=== PATIENT | male | born 1965 | race Caucasian/White ===

== ENCOUNTER 2020-07-13 23:55 | Emergency (ER) | payer MEDICARE, SELFPAY ==
--- NOTE | 2020-07-13 23:45 | RT.EKG_ITS ---
APPROVED REPORT Exam: Resting ECG Patient Location: E HR:88 bpm ECG Measurements Heart Rate 88 AXIS MA 162 P 79 QRSd 99 QRS 53 QT 469 T 134 QTc 567 Conclusion Sinus rhythm...normal P axis, V-rate 60- 99 Probable left atrial enlargement...P >50mS, <-0.10mV V1 Abnrm T, probable ischemia, anterolateral lds...T <-0.50mV, I aVL V2-V6 Prolonged QT interval...QTc >500mS Physician:Rate 88, sinus rhythm, QTC is 567 however QT is 469, notably inverted T waves in V2, V3 V4 V5 and V6. No evidence of STEMI. No Q waves. No prior EKG for comparison.
[2020-07-13 23:59] VITALS: BP 105/73; PULSE 88; RESP 20; TEMP 36.8; O2SAT 94
[2020-07-14] VITALS (21 sets, daily range): BP systolic 105–124; BP diastolic 68–89; PULSE 78–94; RESP 4–27; O2SAT 91–99
--- NOTE | 2020-07-14 | RT.EKG_ITS ---
APPROVED REPORT Exam: Resting ECG Patient Location: E HR:84 bpm ECG Measurements Heart Rate 84 AXIS NE 173 P 71 QRSd 94 QRS 46 QT 483 T 131 QTc 571 Conclusion Sinus rhythm...normal P axis, V-rate 60- 99 Probable left atrial enlargement...P >50mS, <-0.10mV V1 Abnormal T, suspect prox. LAD occlu. or CVA...Symmetric T<-0.5mV, V2-V4 Prolonged QT interval...QTc >500mS Physician: Rate 84, sinus rhythm, enhancing T wave inversions in V2 through V6, slightly more pronoun chrystal than prior EKG 1 hour ago. No evidence of STEMI at this time.
--- NOTE | 2020-07-14 | DI.CT_ITS ---
EXAM: CT HEAD CERVICAL SPINE WO CLINICAL HISTORY: fall, old stroke. TECHNIQUE: Imaging Protocol: Axial computed tomography images with coronal and sagittal reformatted images were created and reviewed COMPARISON: No exams were available for comparison FINDINGS: CT Head: Ventricles and Extra axial spaces: There is generalized cerebral atrophy. Hemorrhage: None. Cerebral parenchyma: There are areas of decreased attenuation in the white matter consistent with thelma rovascular ischemic change. There are areas of encephalomalacia bilaterally. Old right basal gangli ar lacunar infarct is noted. No acute territorial infarct. Midline shift: None. Brainstem/Cerebellum: Normal. Calvarium: Normal. Visualized Paranasal sinuses/Mastoids: Clear. Soft Tissues: Unremarkable. CT Cervical Spine: Bones: No acute fracture or subluxation. Multilevel degenerative changes are seen throughout the cerv ical spine. Soft Tissues: Unremarkable. Lung Apices: Clear. IMPRESSION: 1. No acute intracranial process. 2. No acute fracture or subluxation in the cervical spine. RADIATION DOSE DELIVERED: 1,566.99mGy.cm Total DLP DATA REPOSITORY: All CT scans at this facility are submitted to the National Radiology Data Registry (NRDR) Dose Index Registry (DIR) with the [employer] (A[employer]). RADIATION OPTIMIZATION: All CT scans at this facility use at least one of these dose optimization te chniques: automated exposure control; mA and/or kV adjustment per patient size (includes targeted exa ms where dose is matched to clinical indication); or iterative reconstruction.
[2020-07-14] MEDS: Albuterol/Ipratropium 3 ML UPD VIAL 6 ML UPD (00:26)
[2020-07-14] MEDS: Normal Saline 500 ML IV (00:27)
--- NOTE | 2020-07-14 00:33 | ED.GENADUL_ITS ---
Discharge Plan Disposition Patient Disposition: [facility] Condition: Serious Discharge Details Clinical Impression: Non-ST elevation IA (NSTEMI), Acute hyponatremia, Alcohol intoxication, Fall Primary Care Provider: JHOANA PINTO ED Provider: Surjit Jones Home Meds and New Rx's Prescriptions: No Action tamsulosin [Flomax] 0.4 mg Capsule 4 mg PO DAILY RF: 0 Medical Decision Making Upon my evaluation, this patient had a high probability of imminent or life- threatening deterioration, which required my direct attention, intervention, and personal management. I have personally provided 45 minutes of critical care time exclusive of time spent on separately billable procedures. Time includes review of laboratory data, radiology results, discussion with consultants, and monitoring for potential decompensation. Interventions were performed as documented. 54-year-old male who is a notably poor historian presents for evaluation of intoxication chest pain. Per EMS he does have a history of a stroke in the past with chronic left-sided deficits. Patient states that I busted out of a halfway in [place] and had been living up here for a w hile. He is currently living with his ex-girlfriend and her significant other. Per those people they state that he has been drinking a notable amount of alcohol, and smoking a significant amount of tobacco, and then today he had fallen and had difficulty getting up. He complained of some chest pain and cough at that time, he was brought to the ER for further evaluation by EMS. He was given 1 nitroglycerin which notably improved his symptoms in addition to a 325 aspirin. He did soil himself. Patient right now appears intoxicated and states I feel fine. No other complaints at this time. No other modifying factors. No other known history. Exam demonstrates a somewhat undomiciled male, he is defecated and urinated on himself. He appears intoxicated but otherwise stable. He shows no signs of acute distress. Vital signs are stable. Differential is broad but includes rhabdo from his fall, potential cardiac etiology, COPD/asthma exacerbation. EKG shows notable inverted T waves in the anterior lateral leads, no evidence of STEMI. Slightly wellenoid in appearance. No prior EKG comparison. We will continue to monitor closely, gently rehydrate, get a CT scan of the head, chest x-ray, reassess. 1:19 AM Laboratory work-up has returned, no white count or bandemia. pH stable, sodium notably low at 125, chloride low at 89, minimal anion gap of 11.4. Of concern his troponin is 0.11, CPK normal. TSH normal. Alcohol level 300. Repeat EKG continues to show the notably inverted T waves, does appear to be potential slight enhancing of those now compared to the previous one. Obviously concerning for ACS. No evidence of STEMI at this point. We will heparinize the patient as soon as the CT scan is negative for bleed as he did fall and may have hit his head. We will consult [facility] for transfer. Patient remains hemodynamically stable. Repeat EKG shows continued lack of evidence of STEMI or is no indication for TPA at this point. 2:47 AM Patient remained stable, bedside echo was performed, no significant wall motion abnormalities that I can detect on the left ventricle at the apex, mild decrease in traumatic status to the right ventricle. This is a limited bedside echo though. Patient remained stable. He now tells me as he becomes more lucid that both of his parents of a heart attack at a young age, and earlier this evening while intoxicated he felt the chest pain and describes it as a vice-like sensation crushing on his chest. He said that the paramedics gave a medication that took it all the way. Patient remained stable at this time. I discussed the case with Dr. Arora of cardiology at [facility] and Dr. Bazan in the ED, patient will be transferred to the ED for further management. Cardiology recommends Plavix loading, we have given 600 of Plavix and 80 of statin. Patient is still being heparinized. I have extensively reviewed the treatment plan with the patient. I have addressed all patient concerns at this time. I have also discussed the plan with the admitting physician and they agree with the current assessment and plan and have agreed to assume responsibility for the patient. All parties demonstrate verbal understanding and agreement with our assessment and plan at this time. At time of transfer the patient was reassessed and continued to demonstrate No signs of acute respiratory distress requiring intubation, hemodynamic instability requiring pressor support, or rapidly declining mental status. The patient is stable for transport. Additionally the patient's urinalysis does show elevation in WBCs He denies any complaints dysuria. EKG 00: 06 Rate 88, sinus rhythm, QTC is 567 however QT is 469, notably inverted T waves in V2, V3 V4 V5 and V6. No evidence of STEMI. No Q waves. No prior EKG for comparison. EKG 01: 10 Rate 84, sinus rhythm, enhancing T wave inversions in V2 through V6, slightly more pronounced than prior EKG 1 hour ago. No evidence of STEMI at this time. FINDINGS: Lungs: Unremarkable. No consolidation. Pleural space: Unremarkable. No pleural effusion. No pneumothorax. Heart/Mediastinum: Unremarkable. No cardiomegaly. Bones/joints: Unremarkable. IMPRESSION: No acute findings. Thank you for allowing us to participate in the care of your patient. Dictated and Authenticated by: Gurdeep Sharpe MD 07/14/2020 1:08 AM Eastern Time ([place] & [place]) FINDINGS: Brain: Bilateral focal areas of encephalomalacia. Chronic lacunar infarct right basal ganglia. No acute territorial infarct. No acute intracranial hemorrhage. Cerebral ventricles: No ventriculomegaly. Bones/joints: Unremarkable. No acute fracture. Paranasal sinuses: Visualized sinuses are unremarkable. No fluid levels. Mastoid air cells: Visualized mastoid air cells are well aerated. Soft tissues: Unremarkable. IMPRESSION: No acute finding. FINDINGS: Vertebrae: No acute fracture. Normal alignment. Multilevel degenerative disk disease and facet arthropathy with at least mild neuroforaminal and canal stenosis.. Soft tissues: Unremarkable. Lungs: Lung apices are normal. IMPRESSION: No acute findings. Thank you for allowing us to participate in the care of your patient. Dictated and Authenticated by: Gurdeep Sharpe MD 07/14/2020 1:51 AM Eastern Time ([place] & [place]) HPI General Date/Time Provider Initiated Documentation: 07/14/20 00:04 . HPI Narrative: 54-year-old male who is a notably poor historian presents for evaluation of intoxication chest pain. Per EMS he does have a history of a stroke in the past with chronic left-sided deficits. Patient states that I busted out of a halfway in [place] and had been living up here for a while. He is currently living with his ex-girlfriend and her significant other. Per those people they state that he has been drinking a notable amount of alcohol, and smoking a significant amount of tobacco, and then today he had fallen and had difficulty getting up. He complained of some chest pain and cough at that time, he was brought to the ER for further evaluation by EMS. He was given 1 nitroglycerin which notably improved his symptoms in addition to a 325 aspirin. He did soil himself. Patient right now appears intoxicated and states I feel fine. No other complaints at this time. No other modifying factors. No other known history. Related Data Home Medications Medication Instructions Recorded Confirmed tamsulosin [Flomax] 4 mg PO DAILY 07/14/20 07/14/20 Allergies Allergy/AdvReac Type Severity Reaction Status Date / Time No Known Allergies Allergy Unverified 07/14/20 00:10 General Stated Complaint: Chest Pain TABATHA: 2 Review of Systems All systems reviewed & are unremarkable except as noted in HPI and below PFSH Social History Smoking risk assessment performed?: No Alcohol Intake: current Alcohol Intake frequency: 0-2 drinks per day Alcohol type: beer and hard liquor Substance use type: does not use Do you feel safe at home: Yes Exam Narrative Exam Narrative: 1.Const: Well-nourished, Well-developed, appearing stated age, self soiled, notably disheveled 2.Eyes: PERRL, no conjunctival injection, and symmetrical lids. 3.ENT: Atraumatic external nose and ears. Moist MM. Neck: Symmetric, trachea midline, No thyromegaly. 4.CVS: +S1/S2, No murmurs or gallops. Peripheral pulses 2+ and equal in all extremities. Brisk capillary refill in all extremities. 5.RESP: Unlabored respiratory effort. Crackles in the bases, mild wheezes. 6.GI: Soft, Nontender/Nondistended, No hepatosplenomegaly. No guarding or rebound. 7.MSK: Normocephalic/Atraumatic, Extremities w/o deformity or ttp No cyanosis or clubbing, Normal movement of all extremities except for slight weakness in the upper and lower left extremities. 8.Skin: Warm, Dry. No rashes or lesions. 9.Neuro: roll cutter II-XII grossly intact. Sensation grossly intact, movement is present for all extremities, slightly weak in the left compared to the right which she states is chronic. No other focal neurologic deficits. 10.Psych: (AAO) x1, intoxicated Course Vital Signs Vital signs: Vital Signs Temperature 36.8 C 07/13/20 23:59 Pulse 88 07/13/20 23:59 Respiratory Rate 20 07/13/20 23:59 Blood Pressure 105/73 07/13/20 23:59 Pulse Oximetry 94 07/13/20 23:59 Temperature 36.8 C 07/13/20 23:59 Temperature Source Skin 07/13/20 23:59 Pulse 91 H 07/14/20 00:26 Respiratory Rate 23 07/14/20 00:26 Respiratory Effort Non-Labored 07/14/20 00:12 Respiratory Depth Normal 07/14/20 00:12 Respiratory Pattern Normal 07/14/20 00:12 Blood Pressure 105/73 07/13/20 23:59 Blood Pressure Position Supine 07/13/20 23:59 Pulse Oximetry 93 07/14/20 00:26 Oxygen Delivery Method Room Air 07/14/20 00:26 Oxygen Flow Rate 0 07/14/20 00:26 Pain Level 1 07/14/20 00:12
[2020-07-14 00:34] LABS: BE (Venous) 1 mmol/L (-2-3); HCO3 (Venous) 26 mmol/L (23-28); O2 Sat (Venous) 75 %; TCO2 (Venous) 23 mmol/L (24-29); pCO2 (Venous) 46 mmHg (41-51); pH (Venous) 7.36 (7.31-7.41); pO2 (Venous) 43 mmHg
[2020-07-14 00:38] LABS: Abs Immature Grans 0.03 10^3/uL (0.0-0.06); Absolute Basophil Count 0.03 10^3/uL (0.0-0.2); Absolute Eosinophil Count 0.13 10^3/uL (0.0-0.7); Absolute Lymphocyte Count 3.03 10^3/uL (1.2-3.4); Absolute Monocyte Count 0.37 10^3/uL (0.1-0.8); Absolute Neutrophil Count 3.02 10^3/uL (1.2-6.7); Basophils % 0.5; HGB 17.4 g/dL (13.5-17.5); Immature Grans % 0.5; Lymphocytes % 45.8; MCH 30.4 pg (27.0-33.0); MCHC 34.8 % (32.0-36.0); MCV 87.4 fL (80-95); Monocytes % 5.6; Neutrophils % 45.6; Nucleated RBC 0 %; Platelet Count 120 10^3/uL (130-400); RBC 5.72 10^6/uL (4.36-5.78); RDW 14.1 % (11.8-14.1); RDW-SD 45.5 fL; WBC 6.61 10^3/uL (4.4-10.8)
--- NOTE | 2020-07-14 01:01 | DI.RAD_ITS ---
EXAM: XR PORTABLE CHEST AP CLINICAL HISTORY: cough, chest pain, SOB TECHNIQUE: 2D digital imaging was performed. COMPARISON: No exams were available for comparison FINDINGS: MEDIASTINUM: Normal. HEART: Normal. PULMONARY VASCULATURE: Normal. LUNGS: Clear. PLEURAL SPACE: No pleural effusion or pneumothorax. BONE:Within normal limits for the patient's age. Old healed left rib fractures. OTHER FINDINGS:Normal. IMPRESSION: No acute pulmonary findings. DATA REPOSITORY: RADIATION DOSE DELIVERED:
[2020-07-14 01:06] LABS: ALT 75 U/L (16-63); AST 96 U/L (15-37); Albumin 3.4 g/dL (3.4-5.0); Alkaline Phosphatase 109 U/L (46-116); Anion Gap 11.4 mmol/L (3-11); BUN 5 mg/dL (7-18); Bilirubin, Total 0.7 mg/dL (0.2-1.0); CO2 24.6 mmol/L (21.0-32.0); CREATININE 0.83 mg/dL (0.70-1.30); Calcium 8.1 mg/dL (8.5-10.1); Chloride 89 mmol/L (98-107); Creatine Kinase 92 U/L (39-308); Glucose 102 mg/dL (74-106); Potassium 3.9 mmol/L (3.5-5.1); Sodium 125 mmol/L (136-145); Total Protein 7.2 g/dL (6.4-8.2)
[2020-07-14 01:07] LABS: ETHANOL BLOOD > 300.0 mg/dL (<3)
[2020-07-14 01:08] LABS: Troponin I 0.11 ng/mL (<0.06)
--- NOTE | 2020-07-14 01:08 | DI.VRAD_ITS ---
PROCEDURE INFORMATION: Exam: XR Chest, 1 View Exam date and time: 07/14/2020 12:40 AM Age: 54 years old Clinical indication: Shortness of breath; Patient HX: Cough, SOB, chest pain, HX stroke x2 TECHNIQUE: Imaging protocol: XR of the chest Views: 1 view. COMPARISON: No relevant prior studies available. FINDINGS: Lungs: Unremarkable. No consolidation. Pleural space: Unremarkable. No pleural effusion. No pneumothorax. Heart/Mediastinum: Unremarkable. No cardiomegaly. Bones/joints: Unremarkable. IMPRESSION: No acute findings. Dictated and Authenticated by: Gurdeep Sharpe MD. Ordering:MARIZA Eddy MD
[2020-07-14 01:14] LABS: PTT Activated 25.9 sec (21.0-27.5); Prothrombin Time 10.2 sec (9.3-11.0)
--- NOTE | 2020-07-14 01:50 | NUR.NOTE ---
Nursing Note: Patient refuses to wear C-collar after provider recommendation. Patient made aware of risks associated with refusal to wear C-collar. Patient refuses second IV placement. Patient taking nasal cannula off reporting I don't need it, I'm breathing just fine. Oxygen maintaining between 90-94% at this time on room air. Provider made aware.
--- NOTE | 2020-07-14 01:51 | DI.VRAD_ITS ---
PROCEDURE INFORMATION: Exam: CT Head Without Contrast Exam date and time: 07/14/2020 1:27 AM Age: 54 years old Clinical indication: Injury or trauma; Blunt trauma (contusions or hematomas); Consciousness not specified; Injury date: 07/13/20; Injury details: Fall, HX stroke TECHNIQUE: Imaging protocol: Computed tomography of the head without contrast. Radiation optimization: All CT scans at this facility use at least one of these dose optimization techniques: automated exposure control; mA and/or kV adjustment per patient size (includes targeted exams where dose is matched to clinical indication); or iterative reconstruction. COMPARISON: No relevant prior studies available. FINDINGS: Brain: Bilateral focal areas of encephalomalacia. Chronic lacunar infarct right basal ganglia. No acute territorial infarct. No acute intracranial hemorrhage. Cerebral ventricles: No ventriculomegaly. Bones/joints: Unremarkable. No acute fracture. Paranasal sinuses: Visualized sinuses are unremarkable. No fluid levels. Mastoid air cells: Visualized mastoid air cells are well aerated. Soft tissues: Unremarkable. IMPRESSION: No acute finding. PROCEDURE INFORMATION: Exam: CT Cervical Spine Without Contrast Exam date and time: 07/14/2020 1:27 AM Age: 54 years old Clinical indication: Injury or trauma; Blunt trauma (contusions or hematomas); Consciousness not specified; Injury date: 07/13/20; Injury details: Fall, HX stroke TECHNIQUE: Imaging protocol: Computed tomography images of the cervical spine without contrast. Radiation optimization: All CT scans at this facility use at least one of these dose optimization techniques: automated exposure control; mA and/or kV adjustment per patient size (includes targeted exams where dose is matched to clinical indication); or iterative reconstruction. COMPARISON: No relevant prior studies available. FINDINGS: Vertebrae: No acute fracture. Normal alignment. Multilevel degenerative disk disease and facet arthropathy with at least mild neuroforaminal and canal stenosis.. Soft tissues: Unremarkable. Lungs: Lung apices are normal. IMPRESSION: No acute findings. Dictated and Authenticated by: Gurdeep Sharpe MD. Ordering:MARIZA Eddy MD
[2020-07-14 02:33] LABS: Bilirubin Negative (Negative); Blood Trace-intact (Negative); Clarity Sl Cloudy (Clear); Glucose Negative (Negative); Ketones Negative (Negative); Leukocyte Esterase Moderate (Negative); Nitrite Negative (Negative); Urobilinogen 0.2 EU/dL (Up TO 0.2); pH 5.5 (5-8)
[2020-07-14 02:34] LABS: Bacteria Many HPF (Negative); C & S Indicated? Yes; Casts Negative LPF (Negative); Crystals Negative HPF (Negative); Epithelial Cells Few HPF (Negative); Mucus Trace (Negative); Other Cells Negative (Negative); RBC 0-2 HPF (0-2); WBC 20-50 HPF (0-5)
[2020-07-14] MEDS: Clopidogrel 300 MG TAB PO (02:48)
[2020-07-14] MEDS: Atorvastatin 40 MG TAB 80 MG PO (02:48)
--- NOTE | 2020-07-15 07:52 | NUR.NOTE ---
Nursing Note: Accessed [facility] patient record with Dr. Surjit Jones DO present. Josie Lamas
== END 2020-07-14 03:04 | disposition short-term general hospital (02) ==
PROVIDERS: Emergency Provider Student in an Organized Health Care Education/Training Program; PCP Nurse Practitioner Family
DX: I21.4 Non-ST elevation (NSTEMI) myocardial infarction (principal); E87.1 Hypo-osmolality and hyponatremia; F10.120 Alcohol abuse with intoxication, uncomplicated; Y90.8 Blood alcohol level of 240 mg/100 ml or more; W19.XXXA Unspecified fall, initial encounter; Z82.41 Family history of sudden cardiac death
CPT/HCPCS: 36415; 80053; 82550; 82805; 87077; 93005; 94640; 96361; 96365; 99291; 70450; 71045; 72125; 80320; 81003; 81015; 84443; 84484; 85025; 85610; 85730; 87086; 87186; 93010; J7620

== ENCOUNTER 2020-09-04 17:23 | Inpatient (IN) | payer MEDICARE, MEDICAID, SELFPAY ==
[2020-09-04] VITALS (62 sets, daily range): BP systolic 122–180; BP diastolic 67–107; PULSE 103–118; RESP 16–23; TEMP 36.3–36.4; O2SAT 94–100
--- NOTE | 2020-09-04 17:41 | ED.GENADUL_ITS ---
Discharge Plan Disposition Patient Disposition: [facility] INPATIENT Condition: Serious Discharge Details Chief Complaint: Male Reproductive Problem Clinical Impression: Epididymo-orchitis Primary Care Provider: JHOANA PINTO ED Provider: Kumar Jacob Home Meds and New Rx's Prescriptions: No Action metformin 500 mg Tablet 500 mg PO DAILY RF: 0 tamsulosin [Flomax] 0.4 mg Capsule 4 mg PO DAILY RF: 0 Medical Decision Making 54-year-old gentleman presents via EMS complaining of left testicle pain for a week, severe over the past 2 days, also notes left lower quadrant discomfort in his abdomen. He states nothing makes the pain worse or better. He makes it very clear that he would prefer to be admitted to our facility or go to a [facility], no longer feels like he can take care of himself at home safely. Clinically he appears disheveled, is hypertensive, tachycardic, has left lower quadrant discomfort and a very firm painful left testicle. Differential is wide but does include diverticulitis, renal stone, hernia, orchiditis, epididymitis, torsion, UTI, etc. Will obtain IV access, give IV fluid, Tylenol, obtain CBC, CMP, lipase, urinalysis, lactate, GC and chlamydia. I will carefully monitor his laboratory values and vital signs after medication is administered. Given his symptoms have been present for 1 week, likely emergent ultrasound not indicated; however, I will reach out to radiology to see if the lead technologist in cytogenetics is available. Upon reevaluation no change in heart rate or hypertension. Pain now a 7 out of 10 down from a 10 out of 10. Laboratory values reveal a white blood cell count of 9.94 hemoglobin 17.0 hematocrit 50.2 platelet count 138. Lactate 1.1 sodium 132 potassium 3.4 chloride 91, creatinine 0.8 with a GFR greater than 60. Total bili 1.1 AST 29, ALT 36, alk phosphatase 125, albumin 3.2 lipase 92. Patient was able to give the dirty urine for GC chlamydia but unable to give a urinalysis. Alcohol less than 3. We will obtain CT imaging of his abdomen and pelvis with contrast. In the meantime I did reach out to care management as if I cannot find a clear medical reason to admit the patient, he does not feel safe going home. I was able to speak with Tiana and she felt as though overnight a swing bed would be appropriate and able to reassess situation tomorrow. Patient reports no significant change in his pain, given 2 mg IV morphine and a second liter of IV fluids. Upon reassessment patient reports no change in his pain. CT imaging of abdomen and pelvis with IV contrast read by radiology as abnormal appearing bladder which may be the result of chronic outlet obstruction, cystitis, or bladder malignancy. Low-density hepatic lesions with differential including metastatic disease. I reviewed the CT myself, requested that an addendum be made regarding the scrotum specifically. records management technician not available to come in tonight. Urinalysis reveals 80 ketones moderate blood positive nitrate, small leuk esterase, greater than 50 white cells. Patient remains with persistent tachycardia and hypertension. He denies alcohol withdrawal in the past. Reports that he only drinks once every 2 or 3 days, believes that his vital signs are abnormal secondary to pain and has nothing to do with any potential alcohol withdrawal. At this time we will give 2 mg IV A tivan and 60 IM Toradol. Addendum of CT is read as there is a simple appearing hydrocele within the right hemiscrotum. There is a structure within the left hemiscrotum which is bulging the median raphe to the right and probably represents a heterogeneous left testicle, although may in part represent septated hydrocele. Consider scrotal ultrasound for further evaluation. Upon reevaluation heart rate is now 104 and blood pressure is 124/81. Given his urinalysis, discomfort, CT findings, will obtain blood cultures and treat with IV Levaquin for potential UTI,orchitis, epididymitis. I will discuss the case with our hospitalist team for admission. Case discussed with Dr. Donahue who is agreeable to admission and will evaluate the patient personally in the ER. Medical Records Medical records reviewed: Yes I reviewed the patient's medical records. Lab Data Lab results reviewed: Yes I reviewed the patient's lab results. Lab results narrative: 09/04/20 21:32 Blood Blood Culture - Pending 09/04/20 21:32 Blood Blood Culture - Pending 09/04/20 20:58 Urine - Reflex from Ua Urine Culture - Pending Laboratory Tests Range/Units 09/04/20 09/04/20 09/04/20 18:15 18:15 18:15 WBC (4.4-10.8) 10^3/uL 9.94 RBC (4.36-5.78) 10^6/uL 5.46 Hgb (13.5-17.5) g/dL 17.0 Hct (40.0-50.0) % 50.2 H MCV (80-95) fL 91.9 MCH (27.0-33.0) pg 31.1 MCHC (32.0-36.0) % 33.9 RDW (11.8-14.1) % 15.6 H Plt Count (130-400) 10^3/uL 138 MPV (8.0-11.0) fL 9.3 Immature Gran % 0.5 Neutrophils % 79.9 Lymphocytes % 14.8 Monocytes % 4.3 Eosinophils % 0.2 Basophils % 0.3 Nucleated RBC % % 0 Absolute Neutrophils (1.2-6.7) 10^3/uL 7.94 H Absolute Lymphocytes (1.2-3.4) 10^3/uL 1.47 Absolute Monocytes (0.1-0.8) 10^3/uL 0.43 Absolute Eosinophils (0.0-0.7) 10^3/uL 0.02 Absolute Basophils (0.0-0.2) 10^3/uL 0.03 VBG Lactate (0.6-1.4) mmol/L Sodium (136-145) mmol/L 132 L Potassium (3.5-5.1) mmol/L 3.4 L Chloride (98-107) mmol/L 91 L Carbon Dioxide (21.0-32.0) mmol/L 22.4 Anion Gap (3-11) mmol/L 18.6 H BUN (7-18) mg/dL 7 Creatinine (0.70-1.30) mg/dL 0.8 Estimated GFR/1.73 m2 (mL/min/1.73m2) >= 60.00 Glucose (74-106) mg/dL 146 H Calcium (8.5-10.1) mg/dL 9.1 Total Bilirubin (0.2-1.0) mg/dL 1.1 H AST (15-37) U/L 29 ALT (16-63) U/L 36 Alkaline Phosphatase (46-116) U/L 125 H Total Protein (6.4-8.2) g/dL 8.4 H Albumin (3.4-5.0) g/dL 3.2 L Lipase (73-393) U/L 92 Urine Color (Yellow) Urine Clarity (Clear) Urine pH (5-8) Ur Specific [place] (1.005-1.025) Urine Protein (Negative) mg/dL Urine Ketones (Negative) mg/dL Urine Blood (Negative) Urine Nitrite (Negative) Urine Bilirubin (Negative) Urine Urobilinogen (Up TO 0.2) EU/dL Ur Leukocyte Esterase (Negative) Urine RBC (0-2) HPF Urine WBC (0-5) HPF Ur Epithelial Cells Urine Crystals Urine Bacteria Urine Mucus Ur Culture Indicated? Urine Glucose (Negative) mg/dL Ethyl Alcohol (<3) mg/dL < 3.0 Range/Units 09/04/20 09/04/20 18:27 20:58 WBC (4.4-10.8) 10^3/uL RBC (4.36-5.78) 10^6/uL Hgb (13.5-17.5) g/dL Hct (40.0-50.0) % MCV (80-95) fL MCH (27.0-33.0) pg MCHC (32.0-36.0) % RDW (11.8-14.1) % Plt Count (130-400) 10^3/uL MPV (8.0-11.0) fL Immature Gran % Neutrophils % Lymphocytes % Monocytes % Eosinophils % Basophils % Nucleated RBC % % Absolute Neutrophils (1.2-6.7) 10^3/uL Absolute Lymphocytes (1.2-3.4) 10^3/uL Absolute Monocytes (0.1-0.8) 10^3/uL Absolute Eosinophils (0.0-0.7) 10^3/uL Absolute Basophils (0.0-0.2) 10^3/uL VBG Lactate (0.6-1.4) mmol/L 1.1 Sodium (136-145) mmol/L Potassium (3.5-5.1) mmol/L Chloride (98-107) mmol/L Carbon Dioxide (21.0-32.0) mmol/L Anion Gap (3-11) mmol/L BUN (7-18) mg/dL Creatinine (0.70-1.30) mg/dL Estimated GFR/1.73 m2 (mL/min/1.73m2) Glucose (74-106) mg/dL Calcium (8.5-10.1) mg/dL Total Bilirubin (0.2-1.0) mg/dL AST (15-37) U/L ALT (16-63) U/L Alkaline Phosphatase (46-116) U/L Total Protein (6.4-8.2) g/dL Albumin (3.4-5.0) g/dL Lipase (73-393) U/L Urine Color (Yellow) Yellow Urine Clarity (Clear) Sl cloudy Urine pH (5-8) 6.0 Ur Specific [place] (1.005-1.025) 1.015 Urine Protein (Negative) mg/dL 30 H Urine Ketones (Negative) mg/dL 80 H Urine Blood (Negative) Moderate H Urine Nitrite (Negative) Positive H Urine Bilirubin (Negative) Negative Urine Urobilinogen (Up TO 0.2) EU/dL 1.0 H Ur Leukocyte Esterase (Negative) Small H Urine RBC (0-2) HPF Urine WBC (0-5) HPF >50 H Ur Epithelial Cells Not Applicable Urine Crystals Not Applicable Urine Bacteria Not Applicable Urine Mucus Not Applicable Ur Culture Indicated? Yes Urine Glucose (Negative) mg/dL Negative Ethyl Alcohol (<3) mg/dL HPI General Mode of arrival: EMS . Date/Time Provider Initiated Documentation: 09/04/20 17:25 . Limitations to Documentation: no limitations . Information obtained by: patient and EMS . HPI Narrative: This is a 54-year-old gentleman, history of diabetes, BPH, presented to the ER via EMS. He moved here in April from [place]. He states that he lives at home alone and has limited resources locally. He is complaining of left sided testicle pain for th past week that has worsened progressively but now severe over the past 2 days. He states that his entire scrotum is red and swollen. He also reports left lower quadrant pain for the past few days. He is a rather vague and poor historian. He denies recent illness or trauma. Denies fever, chest pain, back pain, nausea, vomiting, difficulty with bowel or bladder problems. Denies dysuria, hematuria, flank pain, diarrhea or constipation. He has not taken any [id number] medication for his symptoms. He reports the pain is always there, nothing makes it better or worse. He is not sexually active. Has never had any symptoms like this before. Per EMS, patient with CVA x2. Patient admits to drinking alcohol whenever I can, and smoking daily. Related Data Home Medications Medication Instructions Recorded Confirmed tamsulosin [Flomax] 4 mg PO DAILY 07/14/20 09/04/20 metformin 500 mg PO DAILY 09/04/20 09/04/20 Allergies Allergy/AdvReac Type Severity Reaction Status Date / Time No Known Allergies Allergy Unverified 07/14/20 00:10 General Stated Complaint: Male Reproductive Problem TABATHA: 2 Review of Systems Constitutional Constitutional: Denies fatigue, Denies fever(s), Denies headache(s) and Denies weakness ENT Ears, Nose, Mouth, and Throat: Denies headache(s) and Denies neck pain Cardiovascular Cardiovascular: Denies chest pain and Denies dyspnea Respiratory Respiratory: Denies cough and Denies dyspnea Gastrointestinal Gastrointestinal: Reports abdominal pain, Denies constipation, Denies diarrhea, Denies nausea and Denies vomiting Genitourinary Genitourinary: Denies hematuria, Denies difficulty urinating, Denies genital lesions, Denies genital pain, Denies dysuria, Denies flank pain, Denies penile discharge, Reports scrotal swelling, Denies testicular mass, Reports testicular pain and Denies urinary frequency Musculoskeletal Musculoskeletal: Denies back pain, Denies neck pain and Denies tingling Integumentary/Breasts Skin/Breast: Reports other (Skin breakdown in the groin) Neurologic Neurologic: Denies headache(s), Denies tingling and Denies weakness Endocrine Endocrine: Denies fatigue Hematologic/Lymphatic Hematologic/Lymphatic: Denies easy bleeding and Denies easy bruising [facility] Social History Smoking risk assessment performed?: No Alcohol Intake: current Alcohol Intake frequency: 3 or more drinks per day Alcohol type: beer and hard liquor Drug use: Occasionally Substance use type: marijuana Do you feel safe at home: Yes Exam Const General: cooperative, disheveled and other (Appears uncomfortable) Orientation: alert, awake and oriented x3 HENMT Head: normal to inspection, normocephalic and atraumatic Face and sinus: normal facial exam Mouth: moist mucous membranes abnormal (Dry) Eyes Conjunctivae: conjunctivae normal Sclera: sclerae normal Neck Neck: normal visual inspection, full ROM, trachea midline and supple Resp Effort & Inspection: normal respiratory effort and able to speak in complete sentences Auscultation: clear to auscultation bilaterally Cardio Rate: tachycardic (112) Rhythm: regular rhythm GI Inspection: normal to inspection Palpation: soft, not firm, no guarding, no pulsatile masses and tender in the LLQ Auscultation: normal bowel sounds Male General Exam: Yes other (Erythema) Penis: normal penis Meatus: meatus normal Scrotum: erythematous bilaterally, scrotal swelling bilaterally (Minimal) and other (Tenderness makes examination extremely difficult) Testes: testicular swelling on the left, testicular tenderness on the left (Exquisitely tender and diffusely firm) and high-riding testicle on the left Back/Spine/Pelvis Back: No back tenderness Skin Other: Excoriated erythematous tissue bilateral groin Neuro General: patient alert, patient awake, moves all extremities and no focal motor deficits Cognition: normal cognition Speech: speech normal Sensory Exam: no sensory deficits noted Extrem General: normal to inspection, full ROM and capillary refill normal Psych Appearance: grossly normal Mental Status: mental status grossly normal Course Vital Signs Vital signs: Vital Signs Temperature 36.3 C L 09/04/20 17:32 Pulse 115 H 09/04/20 17:32 Respiratory Rate 18 09/04/20 17:32 Blood Pressure 174/107 H 09/04/20 17:32 Pulse Oximetry 94 09/04/20 17:32 Temperature 36.3 C L 09/04/20 17:32 Temperature Source Skin 09/04/20 17:32 Pulse 115 H 09/04/20 17:32 Respiratory Rate 18 09/04/20 17:32 Respiratory Effort Non-Labored 09/04/20 17:39 Blood Pressure 174/107 H 09/04/20 17:32 Blood Pressure Position Supine 09/04/20 17:32 Pulse Oximetry 94 09/04/20 17:32 Oxygen Delivery Method Room Air 09/04/20 17:32 Oxygen Flow Rate 0 09/04/20 17:32 Pain Level 8 09/04/20 17:32
[2020-09-04 18:26] LABS: Abs Immature Grans 0.05 10^3/uL (0.0-0.06); Absolute Basophil Count 0.03 10^3/uL (0.0-0.2); Absolute Eosinophil Count 0.02 10^3/uL (0.0-0.7); Absolute Lymphocyte Count 1.47 10^3/uL (1.2-3.4); Absolute Monocyte Count 0.43 10^3/uL (0.1-0.8); Absolute Neutrophil Count 7.94 10^3/uL (1.2-6.7); Basophils % 0.3; Eosinophils % 0.2; HCT 50.2 % (40.0-50.0); Immature Grans % 0.5; Lymphocytes % 14.8; MCH 31.1 pg (27.0-33.0); MCHC 33.9 % (32.0-36.0); MCV 91.9 fL (80-95); MPV 9.3 fL (8.0-11.0); Monocytes % 4.3; Neutrophils % 79.9; Nucleated RBC 0 %; Platelet Count 138 10^3/uL (130-400); RBC 5.46 10^6/uL (4.36-5.78); RDW 15.6 % (11.8-14.1); RDW-SD 52.6 fL; WBC 9.94 10^3/uL (4.4-10.8)
--- NOTE | 2020-09-04 18:30 | DI.CT_ITS ---
EXAM: CT ABDOMEN PELVIS W CLINICAL HISTORY: LLQ pain, L testicle pain and swelling. TECHNIQUE: Imaging Protocol: Axial computed tomography images with coronal and sagittal reformatted images were created and reviewed CONTRAST MATERIAL: Intravenous: Omnipaque 100cc Oral: None COMPARISON: No exams were available for comparison FINDINGS: VISUALIZED LUNG BASES: No nodules nor pleural effusions evident. ABDOMEN: There is no ascites. LIVER: Liver contour is somewhat cirrhotic in appearance. There are multiple focal findings in the l iver. There is a subcapsular lesion measuring 2.2 x 1.9 cm in the left hepatic lobe which is denser than a typical cyst. Another lesion measuring 2.4 x 2.0 cm is seen in the medial aspect of the right hepatic lobe. This is also too dense to be a simple cyst. More inferiorly in the right hepatic lob e there are other subcapsular lesion measuring 2.2 x 1.9 cm. Caudate lobe is slightly prominent. GALLBLADDER/BILIARY: The gallbladder surgically absent. Intrahepatic ducts are not dilated. CBD laura meter is slightly prominent, most probably related to post cholecystectomy status. There are no calc rogerio in the lower CBD. No pancreatic head mass evident. PANCREAS: No pancreatic mass evident. Pancreatic duct diameter is upper normal. SPLEEN: Spleen is not enlarged. No obvious intrasplenic lesions. Splenic and portal veins are paten t. ADRENALS: There is a 4 millimeter nodule in the lateral limb of the left adrenal gland,. Opposite-ri ght adrenal gland is unremarkable. KIDNEYS:No cysts evident. No solid renal masses. No calculi nor hydronephrosis.. ABDOMINAL AORTA: The abdominal aorta is calcified and atherosclerotic. There is mild fusiform dilata tion of the infrarenal abdominal aorta. Maximum external diameter is only 2.2 cm. Common iliac mal ayana are heavily calcified but not enlarged. ABDOMINAL WALL/GI: No evidence of significant anterior abdominal wall hernia. The colon is collapsed appears slightly edematous although this may be related to lack of oral contrast. No evidence of di verticulitis. PELVIS: GI: No evidence of appendicitis.No evidence of sigmoid diverticulitis. LYMPH NODES: There is no intrapelvic nor inguinal adenopathy. REPRODUCTIVE: Prostate size is upper normal. URINARY BLADDER: The urinary bladder wall is diffusely thickened and trabeculated. There few diverti culi evident. Largest of these is lateral left and measures 1.5 x 1.2 cm. OSSEOUS: No significant osseous lesions. Left hip hardware noted. Chronic degenerative disc disease L5-S1 level. IMPRESSION: 1. Very abnormal appearance of the urinary bladder diffuse bladder wall thickening and diverticuli. Probably related to chronic cystitis and/or an element of bladder outlet obstruction despite absence of bladder distension. Also diverticuli. There is no hydronephrosis. Urology consultation recommen ded. 2. Multiple lesions in the liver which are not simple cysts. Recommend contrast infused MRI with hem angioma protocol to differentiate these as hemangiomas versus neoplastic lesions. 3. Small 4 millimeter nodule in the left adrenal gland, probably an incidental adenoma. 4. Left hip hardware from ORIF. RADIATION DOSE DELIVERED: 1,349.62mGy.cm Total DLP DATA REPOSITORY: All CT scans at this facility are submitted to the National Radiology Data Registry (NRDR) Dose Index Registry (DIR) with the [employer] (ACR). RADIATION OPTIMIZATION: All CT scans at this facility use at least one of these dose optimization te chniques: automated exposure control; mA and/or kV adjustment per patient size (includes targeted exa ms where dose is matched to clinical indication); or iterative reconstruction.
--- NOTE | 2020-09-04 18:38 | NUR.NOTE ---
Referral to Care Management to establish pcp [facility].Nursing Note:
[2020-09-04 18:39] LABS: Lactate 1.1 mmol/L (0.6-1.4)
[2020-09-04 18:39] LABS: ALT 36 U/L (16-63); AST 29 U/L (15-37); Albumin 3.2 g/dL (3.4-5.0); Alkaline Phosphatase 125 U/L (46-116); Anion Gap 18.6 mmol/L (3-11); BUN 7 mg/dL (7-18); Bilirubin, Total 1.1 mg/dL (0.2-1.0); CO2 22.4 mmol/L (21.0-32.0); CREATININE 0.8 mg/dL (0.70-1.30); Calcium 9.1 mg/dL (8.5-10.1); Chloride 91 mmol/L (98-107); Glucose 146 mg/dL (74-106); Lipase 92 U/L (73-393); Potassium 3.4 mmol/L (3.5-5.1); Sodium 132 mmol/L (136-145); Total Protein 8.4 g/dL (6.4-8.2)
[2020-09-04] MEDS: Normal Saline 1,000 ML 1000 ML IV (18:43)
[2020-09-04] MEDS: ACETAMINOPHEN 1,000 MG/100 ML BTL 400 MG IVPB (18:46)
[2020-09-04 18:48] LABS: ETHANOL BLOOD < 3.0 mg/dL (<3)
[2020-09-04] MEDS: Omnipaque 350 MG/ML 100 ML BTL IJ (19:18)
[2020-09-04] MEDS: Normal Saline - Diluent 50 ML VIAL IV (19:22)
[2020-09-04] MEDS: Normal Saline Flush 10 ML SYR IVP (19:26)
--- NOTE | 2020-09-04 19:56 | DI.VRAD_ITS ---
Addendum created by Juarez Harrell MD on 09/04/2020 8:28:01 PM EST: There is a simple appearing hydrocele within the right hemiscrotum. There is a structure within the left hemiscrotum which is bulging the median raphe to the right and probably represents a heterogeneous left testicle, although may in part represent septated hydrocele. Consider scrotal ultrasound for further evaluation. Initial report created on 09/04/2020 7:55:33 PM EST: PROCEDURE INFORMATION: Exam: CT Abdomen And Pelvis With Contrast Exam date and time: 09/04/2020 6:46 PM Age: 54 years old Clinical indication: Abdominal pain; Localized; Left lower quadrant (llq); Patient HX: Llq pain, L testicle pain and swelling TECHNIQUE: Imaging protocol: Computed tomography of the abdomen and pelvis with contrast. Total images: 1503 Contrast material: OMNIPAQUE 350; Contrast volume: 100 ml; Contrast route: INTRAVENOUS (IV); COMPARISON: No relevant prior studies available. FINDINGS: Lungs: Lung bases are unremarkable. Liver: There is a 2 x 1.8 cm hypodense, but not clearly cystic, lesion involving the lateral segment of the left hepatic lobe. There is a 4.5 x 2.9 cm low-density, but not clearly cystic, lesion in the medial segment of left hepatic lobe having irregular borders. There is a more cystic appearing somewhat bilobed lesion more inferiorly in the anterior segment of the right hepatic lobe measuring approximately 3 x 1.7 cm in size. Gallbladder and bile ducts: Status post cholecystectomy. Secondary mild dilatation of the common duct. Pancreas: There is top-normal diameter to the proximal pancreatic body duct. Pancreas homogeneously enhances without mass. Spleen: Homogeneously enhances. No splenomegaly. Adrenal glands: There is a 3 mm low-density likely adenoma involving the lateral limb of the left adrenal gland. Kidneys and ureters: Kidneys homogeneously enhance. No hydronephrosis. No renal or ureteral calculi. Stomach and bowel: Stomach is grossly unremarkable. No small or large bowel dilatation. No definite bowel wall thickening. Appendix: No evidence of appendicitis. Intraperitoneal space: There is no free air or free fluid within the abdomen. Vasculature: There is right-sided coronary artery calcification. There is significant atherosclerotic changes with minimal ectasia but no aneurysm. Lymph nodes: No significant adenopathy. Urinary bladder: There is diffuse irregular bladder wall thickening with multiple small bladder diverticula, largest involving the bladder dome to the right of midline measuring up to 2 cm. No stranding in the perivesical tissues. Reproductive: Unremarkable as visualized. Bones/joints: There is a degenerative disc disease with vacuum disc at L5-S1. Patient is status post ORIF of a left hip fracture. Soft tissues: Extra-abdominal soft tissues are unremarkable. IMPRESSION: 1. Abnormal appearing bladder which may be the result of chronic outlet obstruction, cystitis or bladder malignancy. 2. Low-density hepatic lesions with differential including metastatic disease. Dictated and Authenticated by: Juarez Harrell MD. Ordering:ALISTAIR Heath MD
[2020-09-04] MEDS: Ketorolac 30 MG/ML VIAL IVP (20:52)
[2020-09-04] MEDS: LORazepam 2 MG/ML VIAL IVP (20:53)
[2020-09-04 21:10] LABS: Bilirubin Negative (Negative); Blood Moderate (Negative); Clarity Sl Cloudy (Clear); Glucose Negative (Negative); Ketones 80 mg/dL (Negative); Leukocyte Esterase Small (Negative); Nitrite Positive (Negative); Specific Gravity 1.015 (1.005-1.025)
[2020-09-04 21:17] LABS: C & S Indicated? Yes; WBC >50 HPF (0-5)
--- NOTE | 2020-09-04 21:45 | RT.EKG_ITS ---
APPROVED REPORT Exam: Resting ECG Patient Location: E HR:107 bpm ECG Measurements Heart Rate 107 AXIS MD 143 P 70 QRSd 86 QRS 4 QT 370 T 73 QTc 494 Conclusion Sinus tachycardia...rate> 99 Probable inferior infarct, old...Q>35mS, II III aVF
--- NOTE | 2020-09-04 22:03 | W.PM.HP.N ---
Date of service: 09/04/20 Time of Service: 22:03 Assessment and Plan Assessment and plan (1) Epididymo-orchitis: Status: Acute Assessment and plan: Acute epididymorchitis, likely infectious. Doubt STD. Will continue Levaquin pending cultures and obtain U/S in AM. Unclear if there may be some underlying testicular lesion, and what (if any) relation this may have to findings in liver and bladder. There is h/o regular alcohol use (states q 3days, and denies h/o W/D). Received dose Ativan in ER, will continue on CIWA. Smoker: prn nicotine patch. Social: consult care management, ? placement. History of Present Illness History of Present Illness Chief Complaint: scrotal pain Narrative: 54 male here with one week lft scrotal pain. Denies trauma, dysuria, hematuria; not sexually active. In ER findings of note fro absence fever; normal white count and trender/swollen left hemiscrotum and pyuria. CT shows heterogeneneity, testicular vs septated hydrocoele. Given Levaquin 500 IV along wih Toradol and MS. Admitted for further management. Additional CT findings include several uncharacterized liver lesions and diffuse bladder wall thickening. Note that patient reports being unable to care for self, has limited resources and is requesting placement. Review of Systems All systems reviewed & are unremarkable except as noted in HPI and below PFSH Social History Smoking risk assessment performed?: No Alcohol Intake: current Alcohol Intake frequency: 3 or more drinks per day Alcohol type: beer and hard liquor Drug use: Occasionally Substance use type: marijuana Do you feel safe at home: Yes Meds Home Medications and Allergies Home Medications Medication Instructions Recorded Confirmed Type tamsulosin [Flomax] 4 mg PO DAILY 07/14/20 09/04/20 History metformin 500 mg PO DAILY 09/04/20 09/04/20 History Allergies Allergy/AdvReac Type Severity Reaction Status Date / Time No Known Allergies Allergy Unverified 07/14/20 00:10 Exam Narrative Exam Narrative: 124/81, 108, 36.3, 19, 97% RA. HEENT atraumatic; neck supple; lungs diminished BS, clear; heart distnat but RRR; abdomen soft and NT; : left hemiscrotum shows redness, induration, diffusely tender (unable to distinguish landmarks) and minimal transillumination at inferior pole; neuro Ox3, moves all 4s Results Labs Result diagrams: 09/04/20 18:15 09/04/20 18:15 Labs: Laboratory Results - last 24 hr 09/04/20 09/04/20 09/04/20 18:15 18:15 18:15 WBC 9.94 RBC 5.46 Hgb 17.0 Hct 50.2 H MCV 91.9 MCH 31.1 MCHC 33.9 RDW 15.6 H Plt Count 138 MPV 9.3 Immature Gran % 0.5 Neutrophils % 79.9 Lymphocytes % 14.8 Monocytes % 4.3 Eosinophils % 0.2 Basophils % 0.3 Nucleated RBC % 0 Absolute Neutrophils 7.94 H Absolute Lymphocytes 1.47 Absolute Monocytes 0.43 Absolute Eosinophils 0.02 Absolute Basophils 0.03 VBG Lactate Sodium 132 L Potassium 3.4 L Chloride 91 L Carbon Dioxide 22.4 Anion Gap 18.6 H BUN 7 Creatinine 0.8 Estimated GFR/1.73 m2 >= 60.00 Glucose 146 H Calcium 9.1 Total Bilirubin 1.1 H AST 29 ALT 36 Alkaline Phosphatase 125 H Total Protein 8.4 H Albumin 3.2 L Lipase 92 Urine Color Urine Clarity Urine pH Ur Specific [place] Urine Protein Urine Ketones Urine Blood Urine Nitrite Urine Bilirubin Urine Urobilinogen Ur Leukocyte Esterase Urine RBC Urine WBC Ur Epithelial Cells Urine Crystals Urine Bacteria Urine Mucus Ur Culture Indicated? Urine Glucose Ethyl Alcohol < 3.0 09/04/20 09/04/20 18:27 20:58 WBC RBC Hgb Hct MCV MCH MCHC RDW Plt Count MPV Immature Gran % Neutrophils % Lymphocytes % Monocytes % Eosinophils % Basophils % Nucleated RBC % Absolute Neutrophils Absolute Lymphocytes Absolute Monocytes Absolute Eosinophils Absolute Basophils VBG Lactate 1.1 Sodium Potassium Chloride Carbon Dioxide Anion Gap BUN Creatinine Estimated GFR/1.73 m2 Glucose Calcium Total Bilirubin AST ALT Alkaline Phosphatase Total Protein Albumin Lipase Urine Color Yellow Urine Clarity Sl cloudy Urine pH 6.0 Ur Specific [place] 1.015 Urine Protein 30 H Urine Ketones 80 H Urine Blood Moderate H Urine Nitrite Positive H Urine Bilirubin Negative Urine Urobilinogen 1.0 H Ur Leukocyte Esterase Small H Urine RBC Urine WBC >50 H Ur Epithelial Cells Not Applicable Urine Crystals Not Applicable Urine Bacteria Not Applicable Urine Mucus Not Applicable Ur Culture Indicated? Yes Urine Glucose Negative Ethyl Alcohol Last Vital Signs Temp 36.3 C L 02/14/21 17:32 Pulse 108 H 09/04/20 21:30 Resp 19 09/04/20 21:53 BP 124/81 09/04/20 21:30 Pulse Ox 97 09/04/20 21:53 COVID-19 Screening Have you, or household traveled for leisure in last 14 days?: No Had IN PERSON contact w/suspected or confirmed C-19 person: No
[2020-09-04] MEDS: levoFLOXacin 500 MG/100 ML BAG 100 MG IVPB (22:25)
--- NOTE | 2020-09-05 | DI.US_ITS ---
EXAM: US ABDOMEN CLINICAL HISTORY: abnormal liver hypodensities on CT TECHNIQUE: Ultrasound of complete upper abdomen performed using standard protocol. COMPARISON: CT CT ABDOMEN PELVIS W from 09/04/2020 US US SCROTUM from 09/05/2020 CT scan 09/04/2020 was reviewed FINDINGS: There is no ascites evident. LIVER: There are 3 hyperechoic lesions in the liver which correspond to the findings on the CT scan. These all exhibit similar hyperechoic appearance. The largest measures 5.4 x 1.9 x 3.3 centimetres. T he others measure 2.4 x 1.4 x 1.4 centimeters and 2.9 x 2.2 x 2.8 centimeters. There are no cysts. GALLBLADDER/BILIARY: Gallbladder surgically absent The common hepatic duct isdilated,, measuring 12mm at the level of ivet hepatis. PANCREAS: Less than optimally seen due to bowel gas. SPLEEN: The spleen is not enlarged and there are no intrasplenic lesions evident. KIDNEYS:Kidneys exhibit normal size with no evidence of solid mass, calculus, nor hydronephrosis. No cortical cysts evident. ABDOMINAL AORTA: Atherosclerotic but no prominent aneurysm. IVC: Normal diameter where visualized. IMPRESSION: 1. Gallbladder surgically absent. The CBD diameter is 12 millimeters which is probably consistent wi th post cholecystectomy status 2. Three similar-appearing hyperechoic lesions in the liver which are subcapsular and in location an d relatively well-defined and correspond to the findings on the CT scan. These most probably represen t cavernous hemangiomas. However, recommend confirmation with contrast infused MRI using hemangioma p rotocol sequences. 3. There is no ascites. DATA REPOSITORY:
--- NOTE | 2020-09-05 | DI.US_ITS ---
EXAM: US SCROTUM CLINICAL HISTORY: left scrotal pain and swelling TECHNIQUE: Ultrasound of the testes performed using grayscale, color, and Doppler imaging. COMPARISON: CT CT ABDOMEN PELVIS W from 09/04/2020 FINDINGS: RIGHT HEMISCROTUM: The right testicle exhibits normal size and echo architecture with no evidence of intratesticular mas s. Vascular flow was demonstrated within the right testicle, including arterial waveforms. There is a 8 x 7 millimeter epididymal head cyst. There is a small right hydrocele LEFT HEMISCROTUM: There is a 5 x 4 millimeter cyst in the superior aspect of the left testicle. Vascular flow is demonstrated in the left testicle. The left epididymis is diffusely thickened and hyperemic. There is a moderate size loculated hydrocele in the left hemiscrotum. IMPRESSION: 1. Bilateral hydroceles, left larger than right and the left is septated-loculated. 2. The left epididymis is diffusely thickened and hyperemic, consistent with inflammatory change/epid idymitis. 3. There is a 5 x 4 millimeter cystic structure in the superior aspect of the left testicle which req uires close follow-up despite its cystic appearance. Cannot exclude the possibility of developing ab scess in the testicle, given the other left hemiscrotal findings. DATA REPOSITORY:
[2020-09-05] MEDS: Lactated Ringers 1,000 ML 100 ML IV ×2 (00:11→18:56)
[2020-09-05] MEDS: Normal Saline Flush 10 ML SYR IVP ×3 (00:11→17:29)
[2020-09-05] MEDS: MAGNESIUM SULFATE 8.12 MEQ, MULTIVITAMIN 10 ML, THIAMINE 100 MG, FOLIC ACID 1 MG in Nor... 168.867 MG IV (00:32)
[2020-09-05] MEDS: Ketorolac 15 MG/ML VIAL IVP (06:41)
[2020-09-05 07:21] LABS: HCT 42.6 % (40.0-50.0); HGB 14.7 g/dL (13.5-17.5); MCH 31.3 pg (27.0-33.0); MCHC 34.5 % (32.0-36.0); MCV 90.8 fL (80-95); MPV 10.1 fL (8.0-11.0); Platelet Count 127 10^3/uL (130-400); RBC 4.69 10^6/uL (4.36-5.78); RDW 15.3 % (11.8-14.1); RDW-SD 50.6 fL; WBC 12.13 10^3/uL (4.4-10.8)
[2020-09-05 07:29] VITALS: BP 136/87; PULSE 109; RESP 17; TEMP 37.2; O2SAT 93
[2020-09-05 07:47] LABS: Anion Gap 11.1 mmol/L (3-11); BUN 7 mg/dL (7-18); C-Reactive Protein 5.18 mg/dL (0.0-0.3); CO2 21.9 mmol/L (21.0-32.0); CREATININE 0.8 mg/dL (0.70-1.30); Chloride 100 mmol/L (98-107); Glucose 139 mg/dL (74-106); Potassium 3.2 mmol/L (3.5-5.1); Sodium 133 mmol/L (136-145)
[2020-09-05] MEDS: Tamsulosin 0.4 MG CAPCR PO (09:15)
[2020-09-05] MEDS: Potassium Chloride Liquid 20 MEQ PKT 40 MEQ PO (09:15)
--- NOTE | 2020-09-05 11:54 | W.UROLOGYCON ---
Date of service: 09/05/20 Time of Service: 11:55 Assessment and Plan Assessment and plan (1) Epididymo-orchitis: Status: Acute Assessment and plan: Clinically, I don't find any evidence of an abscess, so I don't think we need any type of surgical drainage at this point. Putting the information I received from the EMR and from the patient, I suspect that he actually was discharged from [facility] to a rehab facility. I suspect his catheter was removed at the rehab facility and his urine was rechecked before he was sent home. It sounds as if his urine culture was positive at that time, but he never received or took the antibiotics at home. At this point, I would simply recommend antibiotics based on the urine culture results. Quinolones generally had excellent tissue penetration, but his original urine culture from our facility showed his E. coli was resistant to both Cipro and Levaquin. If he begins spiking temperatures before the final culture and sensitivity is available, we may want to switch our antibiotic coverage based on the previous culture. I might suggest ampicillin and gentamicin or even ceftriaxone. Once his current infection has been successfully treated, he will need a work-up for what appears to be recurrent urinary tract infections. It will be interesting to see if he again is growing E. coli with similar sensitivities. Such a finding might indicate an incomplete treatment for his previously identified UTI. He has already had renal imaging and no hydronephrosis is found. Ultimately, we will recommend cystoscopy, but such a procedure would be best done when no active infection is ongoing. History of Present Illness History of Present Illness Chief Complaint: Left epididymitis Narrative: This is a 54-year-old gentleman who is currently hospitalized with left scrotal pain and swelling. The patient himself is not able to provide many details regarding his urologic care. Many of these details are obtained from the EMR records at [facility]. The patient tells me that the pain and swelling began sometime last week. He denies any fevers or chills. He denies any dysuria. He is not aware of any previous urologic surgery or kidney stones. In reviewing his medical records, the patient initially presented to our emergency room in late June with intoxication and chest pain. He was transferred to [facility] where he underwent cardiac catheterization. On presenting to our emergency room, the urine culture demonstrated E. coli UTI. The E. coli was resistant to Cipro and Levaquin. In reviewing his [facility] records, it appears that he became febrile 2 days after his presentation. His blood culture was negative. He was treated with Bactrim. It appears that he had a Givens catheter placed while he was hospitalized. According to the discharge instructions, the patient would be going to a rehabilitation facility ([facility] in [place], [place]). He would complete oral antibiotics and his Givens catheter would be removed following discharge. The patient tells me he actually went back to his residence and the catheter was removed before he left the hospital. He tells me he was voiding fine after the catheter was removed. He tells me that after his discharge, he received a phone call telling him that he needed a different antibiotic (the wrong one was sent to the pharmacy). When he went to the local pharmacy, no antibiotic prescription was available. He has not had his urine rechecked since his discharge from [facility]. Also of interest from his hospitalization at [facility], he had an episode of hematemesis. He had a liver ultrasound that may be useful for comparison to our studies. A GI consult was obtained and upper endoscopy was recommended. The patient refused. Review of Systems Constitutional Constitutional: Denies chills and Denies fever(s) Cardiovascular Cardiovascular: Denies chest pain Respiratory Respiratory: Denies hemoptysis Gastrointestinal Gastrointestinal: Denies vomiting Genitourinary Genitourinary: Reports as per HPI Hematologic/Lymphatic Hematologic/Lymphatic: Denies easy bleeding [facility] Medical History (Updated 09/05/20 @ 12:30 by Krish Longoria MD) Alcohol abuse Coronary artery disease Cystitis Hematemesis Hyponatremia Myocardial infarction Tobacco abuse Urinary retention with incomplete bladder emptying Surgical History (Updated 09/05/20 @ 12:27 by Krish Longoria MD) Stented coronary artery Social History Smoking/Tobacco Use Status: Unknown Smoking risk assessment performed?: Yes Alcohol Intake: current Alcohol Intake frequency: 3 or more drinks per day Alcohol type: beer and hard liquor Drug use: Occasionally Substance use type: marijuana Current gender identity: male Do you feel safe at home: Yes Exam Narrative Exam Narrative: He was asleep when I entered the room but arouses easily He does not appear septic or toxic His vital signs are documented elsewhere His abdomen is soft. His bladder is not distended. There is no CVA tenderness. The right testis and epididymis are normal on palpation. The left epididymis is diffusely enlarged and tender. No fluctuance is identified over the left hemiscrotum. No inguinal adenopathy is present. He is awake and alert His urine culture is pending. His previous culture from 07/14/2020 shows E. coli which is resistant to Levaquin and Cipro Results Last Vital Signs Temp 37.2 C 09/05/20 07:29 Pulse 109 H 09/05/20 07:29 Resp 17 09/05/20 07:29 BP 136/87 09/05/20 07:29 Pulse Ox 93 09/05/20 07:29 Labs Result diagrams: 09/05/20 06:10 09/05/20 06:10 Labs: Laboratory Results - last 24 hr 09/04/20 09/04/20 09/04/20 18:15 18:15 18:15 WBC 9.94 RBC 5.46 Hgb 17.0 Hct 50.2 H MCV 91.9 MCH 31.1 MCHC 33.9 RDW 15.6 H Plt Count 138 MPV 9.3 Immature Gran % 0.5 Neutrophils % 79.9 Lymphocytes % 14.8 Monocytes % 4.3 Eosinophils % 0.2 Basophils % 0.3 Nucleated RBC % 0 Absolute Neutrophils 7.94 H Absolute Lymphocytes 1.47 Absolute Monocytes 0.43 Absolute Eosinophils 0.02 Absolute Basophils 0.03 VBG Lactate Sodium 132 L Potassium 3.4 L Chloride 91 L Carbon Dioxide 22.4 Anion Gap 18.6 H BUN 7 Creatinine 0.8 Estimated GFR/1.73 m2 >= 60.00 Glucose 146 H Calcium 9.1 Total Bilirubin 1.1 H AST 29 ALT 36 Alkaline Phosphatase 125 H C-Reactive Protein Total Protein 8.4 H Albumin 3.2 L Lipase 92 Urine Color Urine Clarity Urine pH Ur Specific [place] Urine Protein Urine Ketones Urine Blood Urine Nitrite Urine Bilirubin Urine Urobilinogen Ur Leukocyte Esterase Urine RBC Urine WBC Ur Epithelial Cells Urine Crystals Urine Bacteria Urine Mucus Ur Culture Indicated? Urine Glucose Ethyl Alcohol < 3.0 09/04/20 09/04/20 09/05/20 18:27 20:58 06:10 WBC RBC Hgb Hct MCV MCH MCHC RDW Plt Count MPV Immature Gran % Neutrophils % Lymphocytes % Monocytes % Eosinophils % Basophils % Nucleated RBC % Absolute Neutrophils Absolute Lymphocytes Absolute Monocytes Absolute Eosinophils Absolute Basophils VBG Lactate 1.1 Sodium 133 L Potassium 3.2 L Chloride 100 Carbon Dioxide 21.9 Anion Gap 11.1 H BUN 7 Creatinine 0.8 Estimated GFR/1.73 m2 >= 60.00 Glucose 139 H Calcium 8.0 L Total Bilirubin AST ALT Alkaline Phosphatase C-Reactive Protein 5.18 H Total Protein Albumin Lipase Urine Color Yellow Urine Clarity Sl cloudy Urine pH 6.0 Ur Specific [place] 1.015 Urine Protein 30 H Urine Ketones 80 H Urine Blood Moderate H Urine Nitrite Positive H Urine Bilirubin Negative Urine Urobilinogen 1.0 H Ur Leukocyte Esterase Small H Urine RBC Urine WBC >50 H Ur Epithelial Cells Not Applicable Urine Crystals Not Applicable Urine Bacteria Not Applicable Urine Mucus Not Applicable Ur Culture Indicated? Yes Urine Glucose Negative Ethyl Alcohol 09/05/20 06:10 WBC 12.13 H RBC 4.69 Hgb 14.7 D Hct 42.6 MCV 90.8 MCH 31.3 MCHC 34.5 RDW 15.3 H Plt Count 127 L MPV 10.1 Immature Gran % Neutrophils % Lymphocytes % Monocytes % Eosinophils % Basophils % Nucleated RBC % Absolute Neutrophils Absolute Lymphocytes Absolute Monocytes Absolute Eosinophils Absolute Basophils VBG Lactate Sodium Potassium Chloride Carbon Dioxide Anion Gap BUN Creatinine Estimated GFR/1.73 m2 Glucose Calcium Total Bilirubin AST ALT Alkaline Phosphatase C-Reactive Protein Total Protein Albumin Lipase Urine Color Urine Clarity Urine pH Ur Specific [place] Urine Protein Urine Ketones Urine Blood Urine Nitrite Urine Bilirubin Urine Urobilinogen Ur Leukocyte Esterase Urine RBC Urine WBC Ur Epithelial Cells Urine Crystals Urine Bacteria Urine Mucus Ur Culture Indicated? Urine Glucose Ethyl Alcohol
[2020-09-05] MEDS: Insulin Aspart 300 UNITS/3 ML PEN SC ×2 (12:24→19:04)
[2020-09-05 12:28] LABS: Hemoglobin A1C 6.8 % (<5.7)
--- NOTE | 2020-09-05 13:44 | NS.NUTBLAN_ITS ---
Date of service: 09/05/20 Time of Service: 13:44 Nutritional Consult ASSESSMENT: 54 year old male admitted with epididymo-orchitis with hx of DM2. Home meds include metformin 500 mg BID. A1C:6.8% indicating well controlled DM. Medical chart indicates 30 lbs weight loss in last 8 weeks (-19%) considered high nutritional risk. Roddy reports food insecurity at home. Accepts referral to [facility] for services after discharge. Estimated needs: [id number] kcal, 70-80 g protein NUTRITIONAL DIAGNOSIS: severe malnutrition in view of significant weight loss due to food insecurity and poor intake in home setting INTERVENTION: Continue CHO diet, supplement with glucerna BID MONITORING AND EVALUATION: weight, po intake, labs Time Spent in Nutritional Counseling and Treatment: 10
[2020-09-05 15:17] VITALS: BP 170/96; PULSE 98; RESP 18; TEMP 36.4; O2SAT 97
--- NOTE | 2020-09-05 16:15 | W.PM.PROGNOT ---
Date of Service Date of service: 09/05/20 Time of Service: 16:15 Assessment and Plan Assessment and plan (1) Epididymo-orchitis: Status: Acute Assessment and plan: Levaquin switched to Rocephin 2 g IV daily. Urology consult appreciated from Dr. Longoria. Case discussed with him. He will continue to follow along and follow-up on the abnormal ultrasound of the patient's testicles. No surgical intervention indicated at this time. (2) Diabetes mellitus type 2, controlled, without complications: Status: Acute Assessment and plan: Monitor blood sugars before meals and at bedtime and cover with insulin per sliding scale along with carb coverage. (3) BPH (benign prostatic hyperplasia): Status: Chronic Assessment and plan: Resume Flomax 0.4 mg daily. May need to increase the dose to 0.8 mg if there is no response. He continues have urinary obstruction he may need a TURP. Qualifiers: Lower urinary tract symptom presence: symptoms present Lower urinary tract symptom detail: incomplete bladder emptying Qualified Code(s): N40.1 - Benign prostatic hyperplasia with lower urinary tract symptoms; R39.14 - Feeling of incomplete bladder emptying (4) Hepatic lesion: Status: Acute Assessment and plan: Upon discharge we will arrange for an MRI with hemangioma protocol. Subjective Subjective Interval history since last seen: 54-year-old male smoker with history of nonobstructive coronary artery disease, type 2 diabetes mellitus, BPH, history of alcoholism, who was hospitalized from July 14 through July 21, 2020 at [facility] for chest pain/ACS. He was transferred from [facility] emergency department to [facility]. He ruled in for non-STEMI and subsequently underwent cardiac catheterization that showed diffuse coronary artery disease with no hemodynamic significant obstruction, his worst obstruction was 50% narrowing of the distal RCA in the right atrioventricular continuation of the RCA. Transthoracic echocardiogram at that time showed preserved left ventricular systolic function with an ejection fraction of 70%. Hospital course was complicated by acute urinary retention due to BPH as well as a cystitis in which he grew E. coli he was treated for couple of days with ceftriaxone and discharged on Bactrim DS. His hospital stay was also complicated by melena hematemesis after initiation of Plavix and aspirin. Patient subsequently was sent to a rehab facility up in [place]. He now presents to the emergency department last night with 1 week history of left-sided scrotal pain and swelling. Work-up in the ER included routine labs occluding CBC and CMP and urinalysis. Patient had gross pyuria and a leukocyte count of 12,000 with no anemia. CMP demonstrated normal LFTs and normal BUN and creatinine BUN was 7 and creatinine was 0.8. Potassium is low at 3.2. CT scan of the abdomen pelvis was performed and demonstrated urinary bladder wall thickening and diverticuli consistent with chronic UTI and bladder outlet obstruction. No hydronephrosis was seen. Multiple lesions were seen in the liver not consistent with simple cysts. Further work-up was recommend including MRI scan with hemangioma protocol. Patient is now admitted for treatment of UTI and epididymo-orchitis. Of note his urine culture from July 14, 2020 demonstrated E. coli which was resistant to Levaquin and ciprofloxacin. Patient was started on Levaquin 500 mg IV last night which have now changed to Rocephin 2 g IV daily. Ultrasound of his scrotum was performed this morning and demonstrated bilateral hydroceles along with left epididymitis and a 5 x 4 mm cystic structure in the superior pole of the left testicle. Subsequent hepatic ultrasound shows that he has 3 similar-appearing hyperechoic lesions in the liver there is subcapsular in location and relatively well-defined and correspond to the findings on CT scan possibly representing cavernous hemangiomas. No ascites is present. Demonstrated the gallbladder surgically absent. Exam Narrative Exam Narrative: Left scrotal sac is very swollen and tender there is firmness to the epididymis and the left testicle. Skin is consistent with tinea cruris. Objective Last Vital Signs Temp 36.4 C L 09/05/20 15:17 Pulse 98 H 09/05/20 15:17 Resp 18 09/05/20 15:17 BP 170/96 H 09/05/20 15:17 Pulse Ox 97 09/05/20 15:17 Laboratory Results - last 24 hr 09/04/20 09/04/20 09/04/20 18:15 18:15 18:15 WBC 9.94 RBC 5.46 Hgb 17.0 Hct 50.2 H MCV 91.9 MCH 31.1 MCHC 33.9 RDW 15.6 H Plt Count 138 MPV 9.3 Immature Gran % 0.5 Neutrophils % 79.9 Lymphocytes % 14.8 Monocytes % 4.3 Eosinophils % 0.2 Basophils % 0.3 Nucleated RBC % 0 Absolute Neutrophils 7.94 H Absolute Lymphocytes 1.47 Absolute Monocytes 0.43 Absolute Eosinophils 0.02 Absolute Basophils 0.03 VBG Lactate Sodium 132 L Potassium 3.4 L Chloride 91 L Carbon Dioxide 22.4 Anion Gap 18.6 H BUN 7 Creatinine 0.8 Estimated GFR/1.73 m2 >= 60.00 Glucose 146 H Hemoglobin A1c Calcium 9.1 Total Bilirubin 1.1 H AST 29 ALT 36 Alkaline Phosphatase 125 H C-Reactive Protein Total Protein 8.4 H Albumin 3.2 L Lipase 92 Urine Color Urine Clarity Urine pH Ur Specific [place] Urine Protein Urine Ketones Urine Blood Urine Nitrite Urine Bilirubin Urine Urobilinogen Ur Leukocyte Esterase Urine RBC Urine WBC Ur Epithelial Cells Urine Crystals Urine Bacteria Urine Mucus Ur Culture Indicated? Urine Glucose Ethyl Alcohol < 3.0 09/04/20 09/04/20 09/05/20 18:27 20:58 06:10 WBC RBC Hgb Hct MCV MCH MCHC RDW Plt Count MPV Immature Gran % Neutrophils % Lymphocytes % Monocytes % Eosinophils % Basophils % Nucleated RBC % Absolute Neutrophils Absolute Lymphocytes Absolute Monocytes Absolute Eosinophils Absolute Basophils VBG Lactate 1.1 Sodium 133 L Potassium 3.2 L Chloride 100 Carbon Dioxide 21.9 Anion Gap 11.1 H BUN 7 Creatinine 0.8 Estimated GFR/1.73 m2 >= 60.00 Glucose 139 H Hemoglobin A1c Calcium 8.0 L Total Bilirubin AST ALT Alkaline Phosphatase C-Reactive Protein 5.18 H Total Protein Albumin Lipase Urine Color Yellow Urine Clarity Sl cloudy Urine pH 6.0 Ur Specific [place] 1.015 Urine Protein 30 H Urine Ketones 80 H Urine Blood Moderate H Urine Nitrite Positive H Urine Bilirubin Negative Urine Urobilinogen 1.0 H Ur Leukocyte Esterase Small H Urine RBC Urine WBC >50 H Ur Epithelial Cells Not Applicable Urine Crystals Not Applicable Urine Bacteria Not Applicable Urine Mucus Not Applicable Ur Culture Indicated? Yes Urine Glucose Negative Ethyl Alcohol 09/05/20 09/05/20 06:10 06:10 WBC 12.13 H RBC 4.69 Hgb 14.7 D Hct 42.6 MCV 90.8 MCH 31.3 MCHC 34.5 RDW 15.3 H Plt Count 127 L MPV 10.1 Immature Gran % Neutrophils % Lymphocytes % Monocytes % Eosinophils % Basophils % Nucleated RBC % Absolute Neutrophils Absolute Lymphocytes Absolute Monocytes Absolute Eosinophils Absolute Basophils VBG Lactate Sodium Potassium Chloride Carbon Dioxide Anion Gap BUN Creatinine Estimated GFR/1.73 m2 Glucose Hemoglobin A1c 6.8 H Calcium Total Bilirubin AST ALT Alkaline Phosphatase C-Reactive Protein Total Protein Albumin Lipase Urine Color Urine Clarity Urine pH Ur Specific [place] Urine Protein Urine Ketones Urine Blood Urine Nitrite Urine Bilirubin Urine Urobilinogen Ur Leukocyte Esterase Urine RBC Urine WBC Ur Epithelial Cells Urine Crystals Urine Bacteria Urine Mucus Ur Culture Indicated? Urine Glucose Ethyl Alcohol
[2020-09-05] MEDS: Acetaminophen 325 MG TAB 650 MG PO (16:23)
[2020-09-05] MEDS: cefTRIAXone 2 GM/50 ML BAG IVPB (16:58)
[2020-09-05] MEDS: MORPHine 4 MG/ML SYR IVP (17:30)
--- NOTE | 2020-09-05 19:04 | INITIAL_ITS ---
- If Service Date Differs Date of service: 09/05/20 Time of Service: 19:05 Care Management Initial Assess REASON FOR HOSPITALIZATION:: Epidymoorchititis PAST MEDICAL HISTORY/PAST SURGICAL HISTORY:: Medical History, per chart: alcohol abuse, coronary artery disease, cystitis, hematemesis, hyponatremia, myocardial infarction, tobacco abuse, urinary retention with incomplete bladder emptying. Surgical History: Stented coronary artery PREVIOUS FUNCTIONAL STATUS/SOCIAL/FAMILY SUPPORTS:: Holland lives in a trailer in [place], [facility]. He recently relocated to [place] from [place]. He stated that he has a couple of friends who check in on him at home, and provide him with water to flush with. He stated that he does not currently have running water. He recently was [facility] [place] nursing facility in [place], [place]. Per Holland, he is independent with ADL's, although he has difficulty cleaning himself up. CURRENT FUNCTIONAL STATUS:: Holland was eating lunch when CM met with him. He stated that he feel that he can no longer take care of himself, and would prefer to live in a nursing facility. CM discussed his ADL's with him, to determine his level of functioning. He stated that he can make his own meals, as long as he can microwave them, he can ambulate with the use of his 4WW, he is able to manage his medications, and he is able to use the toilet on his own. He stated that he sometimes has trouble with bathing, but later stated that this is due to not having running water at home. CM discussed options with him, including a possible short term rehab stay vs home with services. CM will explore options based on his current insurance, and make recommendations for long term acute care registered nurse planning. CM will attempt to connect him with case management in the community. CM will continue to follow. ADVANCE DIRECTIVES:: None on file. CM will offer forms. Has patient been provided with info about the portal/API?: Yes Did the patient sign up for the portal?: No CODE STATUS:: Full Code INSURANCE COVERAGE / FINANCIAL ISSUES:: MCR CURRENT HOME/COMMUNITY SERVICES/EQUIPMENT:: Holland has a 4WW. No current services. PRIMARY CARE PHYSICIAN:: Randall Menchaca listed- no longer works in the area. CM will connect to local PCP. POTENTIAL DISCHARGE NEEDS:: Evaluations for further needs, follow up appointments. PATIENT/FAMILY EDUCATION NEEDS:: Review discharge instructions regarding activity levels and medications, discussion of self care needs including ask me three. ANTICIPATED BARRIERS TO DISCHARGE:: Holland stated in the ED that he does not feel safe at home. CM will explore options for additional care at home vs SNF. TRANSPORTATION:: Via private vehicle friends vs RCT PLAN:: Holland would prefer to be placed in a SNF at this time. CM will explore options with Holland based on his current functional status and his insurance coverage. He will likely go to a SNF vs home with services and connections to community supports, once medically cleared. He will follow up with his PCP and discharge plan of care.
[2020-09-05] MEDS: Potassium Chloride Liquid 20 MEQ PKT PO (20:48)
[2020-09-05 23:08] LABS: COVID-19 RT-PCR UVMMC Result Negative (Negative)
[2020-09-05 23:38] VITALS: BP 150/92; PULSE 98; RESP 18; TEMP 36.9; O2SAT 96
[2020-09-06] MEDS: Lidocaine 2% Jelly 11 ML SYR UR (00:15)
[2020-09-06] MEDS: Lidocaine 2% Jelly 6 ML SYR (04:30)
[2020-09-06] MEDS: Lactated Ringers 1,000 ML 100 ML IV (06:00)
[2020-09-06 07:00] VITALS: BP 147/77; PULSE 96; RESP 18; TEMP 37.2; O2SAT 96
[2020-09-06 07:24] LABS: Abs Immature Grans 0.06 10^3/uL (0.0-0.06); Absolute Basophil Count 0.03 10^3/uL (0.0-0.2); Absolute Eosinophil Count 0.02 10^3/uL (0.0-0.7); Absolute Lymphocyte Count 1.67 10^3/uL (1.2-3.4); Absolute Monocyte Count 0.73 10^3/uL (0.1-0.8); Absolute Neutrophil Count 7.37 10^3/uL (1.2-6.7); Basophils % 0.3; Eosinophils % 0.2; HCT 41.3 % (40.0-50.0); HGB 14.4 g/dL (13.5-17.5); Immature Grans % 0.6; Lymphocytes % 16.9; MCH 31.5 pg (27.0-33.0); MCHC 34.9 % (32.0-36.0); MCV 90.4 fL (80-95); MPV 10.9 fL (8.0-11.0); Monocytes % 7.4; Neutrophils % 74.6; Nucleated RBC 0 %; Platelet Count 119 10^3/uL (130-400); RBC 4.57 10^6/uL (4.36-5.78); RDW 15.3 % (11.8-14.1); RDW-SD 50.4 fL; WBC 9.88 10^3/uL (4.4-10.8)
[2020-09-06 07:28] LABS: Bilirubin Negative (Negative); Blood Moderate (Negative); Clarity Cloudy (Clear); Glucose 100 mg/dL (Negative); Ketones Negative (Negative); Leukocyte Esterase Large (Negative); Nitrite Positive (Negative); Specific Gravity 1.025 (1.005-1.025); Urobilinogen 0.2 EU/dL (Up TO 0.2)
[2020-09-06 07:35] LABS: C & S Indicated? C&S Done As Ordered; WBC >50 HPF (0-5)
[2020-09-06 07:38] LABS: Anion Gap 10.6 mmol/L (3-11); BUN 5 mg/dL (7-18); CO2 24.4 mmol/L (21.0-32.0); CREATININE 0.7 mg/dL (0.70-1.30); Calcium 8.1 mg/dL (8.5-10.1); Chloride 98 mmol/L (98-107); Glucose 159 mg/dL (74-106); Potassium 3.3 mmol/L (3.5-5.1); Sodium 133 mmol/L (136-145)
[2020-09-06] MEDS: MORPHine 4 MG/ML SYR IVP (08:09)
[2020-09-06] MEDS: Potassium Chloride Liquid 20 MEQ PKT PO (08:09)
[2020-09-06] MEDS: Tamsulosin 0.4 MG CAPCR PO (08:10)
[2020-09-06] MEDS: Insulin Aspart 300 UNITS/3 ML PEN SC ×5 (08:10→17:23)
--- NOTE | 2020-09-06 08:33 | PHACLINREV_ITS ---
Pharmacy Admission Review - Admission Clinical Review (Last Updated 09/05/20 @ 12:30 by Krish Longoria MD) Hepatic lesion (Acute) Diabetes mellitus type 2, controlled, without complications (Acute) Epididymo-orchitis (Acute) No Known Allergies Allergy (Unverified 07/14/20 00:10) Height 6 ft Weight 72.575 kg EPIDIYMOORCHITIS - Comments Comments/Follow Ups: CIWA being monitored, has not rec'd any Lorazepam, scores yesterday were 2-4. Urology consult: no surgical intervention needed, no abscess noted. Treating UTI with Rocephin, Micro: >100K gram negative, awaiting sensitivities. Has/had catheter. Blood cultures no growth x24h. Been afebrile, no recordings today. Previous admisstion to [facility] [place] in June for cardiac cath where he also had E.Coli in urine. Don't see patient has been on any Plavix/ASA therapy - Renal Dosing Renal Dosing: BUN 5 mg/dL (7-18) L 09/06/20 06:18 Creatinine 0.7 mg/dL (0.70-1.30) 09/06/20 06:18 CrCl>100ml/min - Anticoagulation Anticoagulation: Hgb 14.4 g/dL (13.5-17.5) 09/06/20 06:18 Hct 41.3 % (40.0-50.0) 09/06/20 06:18 Plt Count 119 10^3/uL (130-400) L 09/06/20 06:18 Creatinine 0.7 mg/dL (0.70-1.30) 09/06/20 06:18 - Opiate Usage Evaluate Pain Scale/Pains Meds: Reviewed (Pain 6/10; has IVP Morphine, Dilaudid and Nucynta prn, only used a few doses of Morphine) Scheduled Bowel Reg ordered if on Opiates?: No (will monitor, +BM 09/05/20) - Relevant Labs Sodium 133 mmol/L (136-145) L 09/06/20 06:18 Potassium 3.3 mmol/L (3.5-5.1) L 09/06/20 06:18 Chloride 98 mmol/L (98-107) 09/06/20 06:18 C-Reactive Protein 5.18 mg/dL (0.0-0.3) H 09/05/20 06:10 Electrolytes, C-Reactive P, ESR: Reviewed (Will need Potassium replacement today, LR for IVF's) - DM Control DM Control: Glucose 159 mg/dL (74-106) H 09/06/20 06:18 Hemoglobin A1c 6.8 % (<5.7) H 09/05/20 06:10 Finger Stick Blood Glucose 156 Finger Stick Blood Glucose 156 Insulin Dosing: Reviewed (Novolog scale and carb counting) - BP Control BP Control: Blood Pressure 150/92 If elevated: Reviewed - Qtc Review If Elevated: Reviewed (QTC 494, sinus tachy on admission) - IV to PO Switch IV Medications: Reviewed (IV Morphine, Dilaudid, Phenergan) - Home Meds Home Med List reviewed: Reviewed Relevent Home Meds Not ordered & why?: Metformin (has Novolog) - Comments Comments/Follow Ups: Patient would prefer LT Nursing facility, as has difficulty caring for self with current living situation Antibiotic Activity - Pharmacy Antibiotic Review Pharmacy Antibiotic Activity: 48 hour review - Antibiotic Information Antibiotic Review Info: Neftali day#2 for Gram neg UTI>100K, sensitivities pending
[2020-09-06] MEDS: Normal Saline Flush 10 ML SYR IVP ×5 (11:20→21:05)
[2020-09-06] MEDS: Potassium Chloride 20 MEQ TABCR 40 MEQ PO (11:21)
[2020-09-06] MEDS: Metoprolol CR 100 MG TABCR PO (12:22)
[2020-09-06] MEDS: Pantoprazole 40 MG TABCR PO (12:22)
--- NOTE | 2020-09-06 14:42 | PT.INIE ---
Date of service: 09/06/20 Time of Service: 13:30 PT Notes Visit [facility] Inpatient Physical Therapy Evaluation Date: 09/06/20 Referring Doctor: Kumar Ha PT Orders: PT CONSULT: Evaluate and Treat Precautions: Standard Patient Profile/Admitting Diagnosis: Orders received for this 54-year-old male with a history of disability. Patient has had a slightly complicated past 3 months getting in and out of hospitalization. Patient states that he woke up about a week ago with inflammation of the scrotal area. He also has a self-described history of stroke and believes that he has had a little bit more difficulty with the left side. He has been brought in for treatment of the inflammation PMHX: PAST MEDICAL HISTORY/PAST SURGICAL HISTORY:: Medical History, per chart: alcohol abuse, coronary artery disease, cystitis, hematemesis, hyponatremia, myocardial infarction, tobacco abuse, urinary retention with incomplete bladder emptying. Surgical History: Stented coronary artery Social History/Home Situation: Patient lives alone in [place] in a single level residence Equipment Owned/DME: Front wheel walker and Rollator walker Subjective: Patient states that he is very sore Objective: Patient lying down in bed with Givens catheter in place no other medical lines in place at this time Mental Status: Well oriented alert to person place and time Pain: 6 out of 10 ROM: Right Upper Extremity: within functional limits Left Upper Extremity: Within functional limits Right Lower Extremity: within functional limits Left Lower Extremity: Within functional limits Strength: Right Upper Extremity: Grossly 5-5 Left Upper Extremity: Grossly 4+ out of 5 Right Lower Extremity: Grossly 5 out of 5 Left Lower Extremity: Grossly 4+ out of 5 Bed Mobility/Transfers: Supervision with only need for negotiation of bed linen Supine-sit: Supervision Sit-stand: Supervision in front wheel walker Stand-sit: Supervision Gait: Patient ambulates under supervision with the need for only slight contact-guard assist for backward walking. Total ambulation distance about 10 feet with use of front wheel walker Balance: Static Sitting: Good Dynamic Sitting: Fair Static Standing: Fair Dynamic Standing: Fair Special Tests: Mobility Limitations Standardized Measure [facility] AM-PAC 6 clicks Basic Mobility Inpatient Short Form: Raw Score: 18 Standardized Score: 43.68 CMS Score: 46.58% Informed Consent/Education: Patient instructed in purpose of PT consult and plan of care. ASSESSMENT: Patient is a 54 year old male with history of poor health Admitted with Inflammation of scrotal area Patient presents with the following impairment level findings: Ambulation intolerance, supervision with transfers. Pt will benefit from skilled therapy intervention in order to remedy their functional limitations and restore patient to a more appropriate and stable functional level. Impairments are contributing to the following functional limitations: AMPAC score 46.58% Patient is assessed as a moderate complexity initial evaluation 65024 based on the following: History: see above Examination: see above Presentation: evolving Decision Makin.58% Goals: Goals X1 week 1. Supine-Sit Ind 2. Sit-Supine Ind 3. Sit-Stand ind 4. Stand-Sit Ind 5. Bed-Chair Ind 6. Gait Ind with FWW up to 50 feet Plan of Care/Treatment Plan: 1-2x/day, 7 days/week x 1 week. Plan of care has been reviewed with the PLASTICS TOOLING ENGINEER providing the service under Physical Therapy direction. Initiate Physical Therapy intervention for strengthening, bed mobility, transfers, gait, stairs, balance training, use of assistive device. DISCHARGE RECOMMENDATIONS: To home with the help of home health services such as PT/OT and nursing once medically cleared for discharge. TREATMENT CODE/TIME: 1330 to 1345 Moderate complexity initial evaluation 53291 15 minutes Salvatore blanco DPT [facility]
--- NOTE | 2020-09-06 14:50 | W.PM.PROGNOT ---
Date of Service Date of service: 09/06/20 Time of Service: 14:51 Assessment and Plan Assessment and plan (1) Epididymo-orchitis: Status: Acute Assessment and plan: Day 2 of Rocephin 2 g IV daily, I expect patient will need a total of at least 10 days of antibiotics although hopefully we can switch him over to an oral agent depending on the results of his urine culture. Urology consult appreciated from Dr. Longoria. Case discussed with him. He will continue to follow along and follow-up on the abnormal ultrasound of the patient's testicles. No surgical intervention indicated at this time. (2) Diabetes mellitus type 2, controlled, without complications: Status: Acute Assessment and plan: Monitor blood sugars before meals and at bedtime and cover with insulin per sliding scale along with carb coverage. (3) BPH (benign prostatic hyperplasia): Status: Chronic Assessment and plan: Increase Flomax to 0.4 mg p.o. twice daily. Add Proscar to his regimen. Qualifiers: Lower urinary tract symptom presence: symptoms present Lower urinary tract symptom detail: incomplete bladder emptying Qualified Code(s): N40.1 - Benign prostatic hyperplasia with lower urinary tract symptoms; R39.14 - Feeling of incomplete bladder emptying (4) Hepatic lesion: Status: Acute Assessment and plan: Upon discharge we will arrange for an MRI with hemangioma protocol. (5) Discharge planning issues: Status: Acute Assessment and plan: automotive center manager is looking into referral to a SNF prior to returning home. I put a consult into physical therapy and Occupational Therapy to evaluate any discharge needs or further therapy needs as well as a safety plan upon discharge. Subjective Subjective Interval history since last seen: Patient still complaining of pain and swelling of his left testicle. Although objectively the edema seems to be decreased. He remains afebrile. Givens catheter has been placed because of urinary obstruction from his BPH and epididymo orchitis. He remains on Rocephin 2 g IV daily. Preliminary urine culture showing gram-negative rods. Blood culture showed no growth x2 sets at 24 hours. Exam Narrative Exam Narrative: Examination of the scrotum reveals left testicular swelling and firmness and discomfort with palpation. Overall though the edema appears to be less. Right testicle is normal. Objective Last Vital Signs Temp 37.2 C 09/06/20 07:00 Pulse 96 H 09/06/20 07:00 Resp 18 09/06/20 07:00 BP 147/77 H 09/06/20 07:00 Pulse Ox 96 09/06/20 07:00 Laboratory Results - last 24 hr 09/04/20 09/06/20 09/06/20 22:05 06:18 06:18 WBC 9.88 RBC 4.57 Hgb 14.4 Hct 41.3 MCV 90.4 MCH 31.5 MCHC 34.9 RDW 15.3 H Plt Count 119 L MPV 10.9 Immature Gran % 0.6 Neutrophils % 74.6 Lymphocytes % 16.9 Monocytes % 7.4 Eosinophils % 0.2 Basophils % 0.3 Nucleated RBC % 0 Absolute Neutrophils 7.37 H Absolute Lymphocytes 1.67 Absolute Monocytes 0.73 Absolute Eosinophils 0.02 Absolute Basophils 0.03 Sodium 133 L Potassium 3.3 L Chloride 98 Carbon Dioxide 24.4 Anion Gap 10.6 BUN 5 L Creatinine 0.7 Estimated GFR/1.73 m2 >= 60.00 Glucose 159 H Calcium 8.1 L Urine Color Urine Clarity Urine pH Ur Specific [place] Urine Protein Urine Ketones Urine Blood Urine Nitrite Urine Bilirubin Urine Urobilinogen Ur Leukocyte Esterase Urine RBC Urine WBC Ur Epithelial Cells Urine Crystals Urine Bacteria Urine Mucus Ur Culture Indicated? Urine Glucose SARS-CoV-2 (PCR) Negative Nasopharyn COVID-19 PCR Not Applicable Ref Test Perform Site [facility] 09/06/20 06:46 WBC RBC Hgb Hct MCV MCH MCHC RDW Plt Count MPV Immature Gran % Neutrophils % Lymphocytes % Monocytes % Eosinophils % Basophils % Nucleated RBC % Absolute Neutrophils Absolute Lymphocytes Absolute Monocytes Absolute Eosinophils Absolute Basophils Sodium Potassium Chloride Carbon Dioxide Anion Gap BUN Creatinine Estimated GFR/1.73 m2 Glucose Calcium Urine Color Yellow Urine Clarity Cloudy Urine pH 7.0 Ur Specific [place] 1.025 Urine Protein 30 H Urine Ketones Negative Urine Blood Moderate H Urine Nitrite Positive H Urine Bilirubin Negative Urine Urobilinogen 0.2 Ur Leukocyte Esterase Large H Urine RBC Not Applicable Urine WBC >50 H Ur Epithelial Cells Not Applicable Urine Crystals Not Applicable Urine Bacteria Not Applicable Urine Mucus Not Applicable Ur Culture Indicated? C&s done as ordered Urine Glucose 100 SARS-CoV-2 (PCR) Nasopharyn COVID-19 PCR Ref Test Perform Site
[2020-09-06] MEDS: Potassium Chloride 20 MEQ TABCR PO ×2 (14:58→21:04)
[2020-09-06 15:13] LABS: Chlamydia Result Negative (Negative); GC Result Negative (Negative)
[2020-09-06 15:18] VITALS: BP 130/86; PULSE 69; RESP 16; TEMP 36.7; O2SAT 96
[2020-09-06 15:38] VITALS: TEMP 36.7
[2020-09-06] MEDS: Ketorolac 15 MG/ML VIAL IVP ×2 (15:38→21:04)
--- NOTE | 2020-09-06 15:40 | CMPROGNOTE_ITS ---
- If Service Date Differs Date of service: 09/06/20 Time of Service: 15:40 Care Management Progress Note S/O: Roddy has been sleeping when CM attempted to meet with him x3 today. MARY received a message from Yoon, listed on his HIPAA, stating that he cannot return to her house. MARY has been attempting to acquire details of his admission to a short term rehab prior to returning home after his admission at [facility] [facility]. Roddy states that he would like to go to a rehab facility, but per PT, he is recommended to return home with PT. CM reached out to Dee for assistance with [facility], as he does not have a payer source for rehab/client advocate care at this time. CM discussed this with Holland, indicating that if he does not have a medical reason for admission to a rehab facility, nor a payer source for [place] [facility] care, he will have to pay out of pocket for admission to a facility. CM discussed him going home with additional services, which he is agreeable to. He stated that he is renting from [employer]. If this is the case, during Covid, she cannot refuse him from returning home. MARY will discuss this further with Holland. Dee Teague, will attempt to connect with Roddy to determine if he qualifies for [facility]. MARY will continue to follow. A: Roddy is a 54 year old male admitted to [facility] on 09/04/20 with Epidymo orchitis. P: Disposition for Holland is unclear at this time. If he does not have a place to return to, CM will provide information for [employer]. Once he is ready for discharge, he will likely transport via RCT w/c van vs private vehicle. He will follow up with his PCP and discharge plan of care.
[2020-09-06] MEDS: cefTRIAXone 2 GM/50 ML BAG IVPB (16:22)
[2020-09-06] MEDS: Atorvastatin 40 MG TAB 80 MG PO (21:03)
[2020-09-06 23:10] VITALS: BP 117/75; PULSE 70; RESP 17; TEMP 36.6; O2SAT 95
[2020-09-07] MEDS: Normal Saline Flush 10 ML SYR IVP (03:35)
[2020-09-07] MEDS: Ketorolac 15 MG/ML VIAL IVP ×2 (03:35→11:19)
[2020-09-07 07:10] VITALS: BP 150/89; PULSE 75; RESP 16; TEMP 36; O2SAT 96
[2020-09-07 07:13] LABS: Anion Gap 8.6 mmol/L (3-11); BUN 9 mg/dL (7-18); CO2 24.4 mmol/L (21.0-32.0); CREATININE 0.7 mg/dL (0.70-1.30); Calcium 8.6 mg/dL (8.5-10.1); Chloride 97 mmol/L (98-107); Glucose 229 mg/dL (74-106); Potassium 4.4 mmol/L (3.5-5.1); Sodium 130 mmol/L (136-145)
[2020-09-07 07:50] VITALS: O2SAT 96
[2020-09-07] MEDS: Metoprolol CR 100 MG TABCR PO (07:55)
[2020-09-07] MEDS: Potassium Chloride 20 MEQ TABCR PO (07:55)
[2020-09-07] MEDS: Tamsulosin 0.4 MG CAPCR PO (07:55)
[2020-09-07] MEDS: Pantoprazole 40 MG TABCR PO (07:55)
[2020-09-07] MEDS: Insulin Aspart 300 UNITS/3 ML PEN SC ×4 (08:20→17:00)
[2020-09-07] MEDS: Sulfameth/Trimeth DS TAB 1 TAB PO ×2 (11:19→19:30)
--- NOTE | 2020-09-07 12:15 | PTTR_ITS ---
Date of service: 09/07/20 Time of Service: 08:30 PT Notes [facility] Date: 09/07/2020 PRECAUTIONS: Fall SUBJECTIVE: Roddy is pleasant and agreeable to participating in PT. In the afternoon patient reports that he learned ealrier today, that he is not welcome to return to his home upon discharge. He is very upset and feels that this will limit his participation, although he is agreeable to gait training. OBJECTIVE: Afternoon session limited, as patient received call from [employer] during session, regarding discharge planning. PAIN: Patient complained of scrotal discomfort with transfers and ambulation BED MOBILITY/TRANSFERS Supine-sit: I Sit-supine: I Sit-stand: I Stand-sit: I Bed-chair: S Chair-bed: S GAIT Assistive Device: 4WW Weight bearing: Full Assist: SBA in a.m.; S in p.m. Distance: 100' in a.m.; 6' F/B in p.m. Deviation: Slow pace, ataxic gait THEREX: Patient completed a lower extremity strengthening program, while in a supine position, as per flow sheet. He also performs shoulder flexion x10. He demonstrates left-sided UE and LE weakness and ataxia. ASSESSMENT: Patient tolerated session well without complaint. He was able to tolerate a progression in gait distance utilizing personal 4WW, demonstrating slow pacing and ataxic gait. PLAN: Continue with global strengthening and gait training for improved mobility and activity tolerance. TREATMENT CODE/TIME: Session 1: 35 minutes; 55740, [id number] (08:30) Session 2: 10 minutes; 70081 (12:55)
--- NOTE | 2020-09-07 12:45 | OTIE_ITS ---
Occupational Therapy Notes Inpatient Occupational Therapy Evaluation Date: 09/07/20 Referring Doctor:Kumar Ha MD OT Orders: Non- Urgent Precautions: Fall, standard, full PATIENT PROFILE/ADMITTING DIAGNOSIS: Pt is a 54 year old male who has a significant past medical hx. He presented to the ED on 09/04/20 for pain in his (L) testicle. Pt states that he had this pain for about 1 week and is spreading to his lower quadrant. He was admitted for scrotal pain/ epididymo-orchitis. Past Medical History: Medical History, per pts chart: alcohol abuse, coronary artery disease, cystitis, hematemesis, hyponatremia, myocardial infarction, tobacco abuse, urinary retention with incomplete bladder emptying. Surgical History: Stented coronary artery Social History/Home Situation: Pt states that he lives alone in an apartment, he does not drive and states that he does not currently have running water in his home. Due to this he is unable to bath and prior has been performing this sitting on the toilet with washcloth. He notes that he has a small bathroom but that his apartment is not handicap accessible which he would like. He has fr iends perform his grocery shopping, laundry and portable feed mill operator whenever they are free to help. Equipment owned/DME: grab bars, 4WW SUBJECTIVE: Pt was in bed prior to OT arrival working with DISTRIBUTION CENTER SUPERVISOR on ADLs, he reports that he is agreeable to OT session. OBJECTIVE: General Observation: Pleasant and agreeable to session. Givens in place, IV in ( R) UE Mental Status: A&Ox3 Pain: 7-8/10 pain in scrotal area ROM: RUE AROM WFL L UE AROM WFL STRENGTH: RUE 4+/5 throughout globally LUE 4-/5 throughout globally SENSATION: intact (B) UE FUNCTIONAL MOBILITY/ADLS: BATHING sitting in bed Bathing UE (I) face, (B) UE and abdomen performed with DISTRIBUTION CENTER SUPERVISOR prior to OT arrival Bathing LE (I) scrotal/citlalli area DRESSING sitting in bed Dressing UE Min (A) don and doffing hospital gown Dressing LE Min (A) with pulling up underwear, (B) don and doffing (B) socks GROOMING NT TOILETING Pt was incontinent when OT arrived. EATING NT BALANCE: Static sitting Normal Dynamic Sitting Normal SPECIAL TESTS: Daily Activity Limitations Standardized Measure [facility] AM -PAC ?6 clicks? Daily Activity Inpatient Short Form: Raw score: 20 INFORMED CONSENT/EDUCATION: Pt instructed in purpose of OT Consult and plan of care. ASSESSMENT: Patient is a 54-year-old male referred to occupational therapy services with diagnosis of inflammation of the scrotal area. Patient presents with clinical signs and symptoms consistent with dx and increased weakness of his (L) side, as demonstrated by the following impairment level findings/functional limitations: Decreased gross and fine motor control of (B) UE, decreased standing ADLs per pts baseline level of function, decreased functional activity tolerance. AMPAC score 20 Patient is assessed as a Low 01327 complexity based on the following: History: see above Examination: see functional limitations as noted above Presentation: evolving Decision Making: AMPAC score 20 GOALS Goals x1 week 1. Transfers (I) 2. Dressing seated in chair (I) UE/LE 3. Bathing standing at sink (I) 4. Toileting on toilet (I) 5. Eating (I) PLAN OF CARE/TREATMENT PLAN: 1x/day, 5 days/ week x 1week Initiate Occupational Therapy Services for bathing, dressing, grooming, toileting, eating, transfer training. DISCHARGE RECOMMENDATIONS OT recommends that pt return home with HHOT when medically cleared per MD. TREATMENT TIME/MINUTES/CODES 98100, 20 minutes (09:20) ELIS Teran/[facility]
--- NOTE | 2020-09-07 15:05 | PGE_ITS ---
Date of Service Date of service: 09/07/20 Time of Service: 15:05 Assessment and Plan Assessment and plan (1) Epididymo-orchitis: Status: Acute Assessment and plan: Urine cultures growing E. coli with ESBL. Rocephin discontinued patient now on oral Bactrim DS twice a day. I would not count the days that he is received antibiotic so far but we will start from today and treat him for 14 days. He can finish out antibiotic treatment as an outpatient. (2) Diabetes mellitus type 2, controlled, without complications: Status: Acute Assessment and plan: Blood sugars are reasonably well controlled during the day however his fasting was elevated at 212. The other blood sugars throughout the day have been 120 and 127. (3) BPH (benign prostatic hyperplasia): Status: Chronic Assessment and plan: Increase Flomax to 0.4 mg p.o. twice daily. Add Proscar to his regimen. Qualifiers: Lower urinary tract symptom presence: symptoms present Lower urinary tract symptom detail: incomplete bladder emptying Qualified Code(s): N40.1 - Benign prostatic hyperplasia with lower urinary tract symptoms; R39.14 - Feeling of incomplete bladder emptying (4) Hepatic lesion: Status: Acute Assessment and plan: Upon discharge we will arrange for an MRI with hemangioma protocol. (5) Discharge planning issues: Status: Acute Assessment and plan: Physical therapy is indicated the patient will be safe for discharge home with home health services. Care management discussed the patient's living situation with the patient. Patient had been running from her friend who he states indicated that she would not allow him to return to her home and have home health services at the house. renewable energy project manager referred the patient to Yesika [employer] regarding application for emergency housing. At this point I think the patient can be discharged home in the morning with outpatient follow-up with home health services including home PT and OT and nursing and RECORD SYSTEMS ANALYST. Subjective Subjective Interval history since last seen: Patient still complains of left testicular pain although the edema has gone down considerably. I put him on ketorolac yesterday but limited to only 4 doses so it would have to be reevaluated. I repeated his BMP today and his BUN and creatinine remain normal at 9 and 0.7. He has a chronic hyponatremia serum sodium of 130 but his hypokalemia has been corrected is up to 4.4. His urine culture results from September 04, 2020 is growing E. coli with ESBL but it is sensitive to Bactrim therefore I discontinued his ceftriaxone and put him on Bactrim. I think once we get his pain adequately controlled and swelling goes down further he could probably be discharged to outpatient treatment. Patient is requesting to go to a SNF. resource development manager is checking in to the last SNF that he went to done in [facility] after he left [facility] on July 21, 2020. They try to find out whether he exhausted his length of stay for the year. I am not sure that he really requires a SNF as he seems to be able to do everything for himself. Solids he can ambulate safely and is able to dress and bathe himself there is no need for fdc facility. Particularly since he is on oral antibiotics now. Exam Narrative Exam Narrative: Left testicle is still swollen but the swelling has gone down markedly over the last 2 days. He still very tender to the touch. There is no erythema. Objective Last Vital Signs Temp 36 C L 09/07/20 07:10 Pulse 75 09/07/20 07:10 Resp 16 09/07/20 07:10 BP 150/89 H 09/07/20 07:10 Pulse Ox 96 09/07/20 07:50 Laboratory Results - last 24 hr 09/04/20 09/07/20 19:07 06:15 Sodium 130 L Potassium 4.4 D Chloride 97 L Carbon Dioxide 24.4 Anion Gap 8.6 BUN 9 Creatinine 0.7 Estimated GFR/1.73 m2 >= 60.00 Glucose 229 H Calcium 8.6 Chlamydia DNA Probe Negative Chlamydia/GC DNA Source Not Applicable N.gonorrhoeae DNA Probe Negative
[2020-09-07 15:21] VITALS: BP 161/84; PULSE 66; RESP 18; TEMP 36.6; O2SAT 97
--- NOTE | 2020-09-07 16:19 | PDOC.CMPRO ---
- If Service Date Differs Date of service: 09/07/20 Time of Service: 16:19 Care Management Progress Note S/O: Roddy was sitting up in his bed when CM met with him. Holland discussed his living situation in more detail today, stating that he has an agreement with Yoon, who he is friends with, and he pays her $200/month for rent, and $100/month for 'lights'. He stated that she would not allow him to have HH services at the house. He also reported that there is no running water in the home currently, and she doesn't plan to fix that until the spring. MARY shared that Yoon had called and stated that he could not return to her home. CM stated that she cannot evict him without proper notice, but that she can go through the legal process to do so. MARY discussed options with Holland, including calling economic services to obtain emergency housing, which he stated that he would do. MARY communicated with Dee Teague, today regarding the [employer] application. He met with Holland in his room to fill out the application, and is submitting it today. Per PT, Holland will be safe to discharge home with HH PT/OT. CM will continue to follow. A: Roddy is a 54 year old male admitted to [facility] on 09/04/20 with Epidymoorchitis. P: MARY provided information for [employer] today for Holland to find emergency housing. He will have new orders for HH RN, PT, OT, PERSONAL CHEF. Once he is ready for discharge, he will likely transport via [facility] w/c van vs private vehicle. He will follow up with his PCP and discharge plan of care.
[2020-09-07 17:01] LABS: PSA, Screening 0.5 ng/mL (0.0-3.5)
[2020-09-07] MEDS: Insulin Glargine 300 UNITS/3 ML PEN 15 UNITS SC (21:17)
[2020-09-07] MEDS: Atorvastatin 40 MG TAB 80 MG PO (21:17)
[2020-09-07 23:39] VITALS: BP 141/84; PULSE 61; RESP 18; TEMP 36.9; O2SAT 96
[2020-09-08] MEDS: Acetaminophen 325 MG TAB 650 MG PO ×3 (00:14→15:46)
[2020-09-08 06:03] VITALS: BP 144/90; PULSE 63; RESP 18; TEMP 35.7; O2SAT 96
[2020-09-08 07:04] LABS: Anion Gap 8.4 mmol/L (3-11); BUN 14 mg/dL (7-18); CO2 26.6 mmol/L (21.0-32.0); CREATININE 0.9 mg/dL (0.70-1.30); Calcium 8.9 mg/dL (8.5-10.1); Chloride 97 mmol/L (98-107); Glucose 144 mg/dL (74-106); Potassium 4.9 mmol/L (3.5-5.1); Sodium 132 mmol/L (136-145)
[2020-09-08 07:14] VITALS: BP 140/83; PULSE 74; RESP 20; TEMP 36.3; O2SAT 95
--- NOTE | 2020-09-08 07:51 | OTTR_ITS ---
Date of service: 09/08/20 Time of Service: 07:25 Occupational Therapy Notes Occupational Therapy Inpatient Treatment Note Date: 09/08/20 PRECAUTIONS: Fall, contact, Full SUBJECTIVE: Pt was agreeable to OT session, he notes that he does not feel like he needs to get washed up but is agreeable to it. OBJECTIVE: PAIN:c/o pain in the scrotal area FUNCTIONAL MOBILITY Rolling L/R: (I) Supine-sit: (I) Sit-supine: (I) Sit-stand: (S) Stand-sit: (S) Bed-Chair: (S) Chair-bed: (S) BATHING: Standing at sink with 4WW Upper Body: (I) face, (B) UE and abdomen Lower Body: pt denies DRESSING: Pt denies. TOILETING: Givens in place ASSESSMENT/PLAN: Pt is not motivated to perform his ADLs, this may be due to his regular routines, it does not seem that he has a steady morning routine which will limit his motivation. OT will continue to work with pt to establish his ADLs and educate on energy conservation techniques. TREATMENT CODES/TIME: [id number], 25 minutes (07:25) Joann Linda OTR/[facility]
[2020-09-08] MEDS: Sulfameth/Trimeth DS TAB 1 TAB PO (08:14)
[2020-09-08] MEDS: Metoprolol CR 100 MG TABCR PO (08:14)
[2020-09-08] MEDS: Potassium Chloride 20 MEQ TABCR PO (08:14)
[2020-09-08] MEDS: Tamsulosin 0.4 MG CAPCR PO (08:15)
[2020-09-08] MEDS: Pantoprazole 40 MG TABCR PO (08:15)
[2020-09-08] MEDS: Insulin Aspart 300 UNITS/3 ML PEN SC ×3 (08:17→12:29)
--- NOTE | 2020-09-08 11:03 | W.PM.PROGNOT ---
Date of Service Date of service: 09/08/20 Time of Service: 11:03 Assessment and Plan Assessment and plan (1) Epididymo-orchitis: Status: Acute Assessment and plan: He is again growing E. coli, but the organism seems to be more resistant to antibiotics compared to his earlier cultures. I would suggest that he be evaluated in my office after he completes his full 2-week course of antibiotics. He currently has an indwelling catheter. From [place] [facility] [place], he had a similar finding during his previous hospitalization. He was discharged from the hospital to a rehab facility with a catheter in place. According to the patient, the catheter was removed successfully and he was able to urinate fine. It does not look like he was ever reevaluated to see if he was actually emptying his bladder. Depending on his ultimate placement, we could either send him home with a catheter that could be removed after discharge or we could remove his catheter before discharge (as long as he is compliant with his follow-up). Subjective Subjective Interval history since last seen: His urine culture results are now available. He was switched to oral Bactrim based on the sensitivities. He has been having difficulty emptying his bladder, but refused intermittent catheterization. He now has a Givens catheter in place. Exam Narrative Exam Narrative: He is sitting on the edge of his bed while being seen by physical therapy His vital signs are documented elsewhere His urine is grossly clear in the catheter bag There is no fluctuance on the scrotum but there remains firmness and induration on the epididymis He is awake and alert Objective Last Vital Signs Temp 36.3 C L 09/08/20 07:14 Pulse 74 09/08/20 07:14 Resp 20 09/08/20 07:14 BP 140/83 09/08/20 07:14 Pulse Ox 95 09/08/20 07:14 Laboratory Results - last 24 hr 09/07/20 09/08/20 06:15 06:15 Sodium 132 L Potassium 4.9 Chloride 97 L Carbon Dioxide 26.6 Anion Gap 8.4 BUN 14 Creatinine 0.9 Estimated GFR/1.73 m2 >= 60.00 Glucose 144 H D Calcium 8.9 PSA Screen 0.5
--- NOTE | 2020-09-08 12:36 | PT.INTREAT ---
Date of service: 09/08/20 Time of Service: 10:10 PT Notes [facility] Date: 09/08/2020 PRECAUTIONS: Fall SUBJECTIVE: Roddy is pleasant and agreeable to participating in PT, although states I hope to do as little as possible. He reports that he was able to get in touch with someone from [employer] and that they will be able to place him in emergency housing upon his discharge. OBJECTIVE: Don/doff shoes independently PAIN: Patient complained of scrotal discomfort with transfers and ambulation, although it is better compared to yesterday. BED MOBILITY/TRANSFERS Supine-sit: I Sit-supine: I Sit-stand: I Stand-sit: I Bed-chair: S Chair-bed: S GAIT Assistive Device: 4WW Weight bearing: Full Assist: S Distance: 150' Deviation: Slow pace, ataxic gait THEREX: Patient completed a lower extremity strengthening program, while in a standing position, as per flow sheet. He also completes functinal [id number] exercise without UE support. TOILETING: Patient toileted independently. ASSESSMENT: Patient tolerated session well without complaint. He was able to tolerate a progression in gait distance utilizing personal 4WW, demonstrating slow pacing and ataxic gait. PLAN: Continue with global strengthening and gait training for improved mobility and activity tolerance. TREATMENT CODE/TIME: 40 minutes; 44261 x2, 40634 (10:10)
--- NOTE | 2020-09-08 13:42 | DSE_ITS ---
Date of service: 09/08/20 Time of Service: 13:43 DS: Diagnosis Discharge Diagnosis (1) Epididymo-orchitis: Status: Acute Asessment and Plan: Patient has an ESBL E. coli urinary tract infection which is sensitive to Bactrim. Patient was initially treated for the first couple days with Levaquin until the organism was identified as an ESBL E. coli. Patient was switched to Bactrim for his last 2 days in the hospital and will continue on 12 more days for total of 14 days of antibiotic treatment. Patient had acute urinary retention required Givens catheter placement which will be removed in the office when he sees Dr. Krish Longoria for urologic follow-up. (2) Hepatic lesion: Status: Acute Asessment and Plan: During work-up of his epididymo orchiditis patient underwent contrast-enhanced CT scan of the abdomen pelvis and subsequently an ultrasound of the abdomen which demonstrated multiple hyperechoic lesions in the liver that were subcapsular and most likely represent cavernous hemangiomas. Nevertheless contrast-enhanced MRI scan with hemangioma protocol was recommended. An order was placed for a follow-up MRI scan in 2 weeks. (3) BPH (benign prostatic hyperplasia): Status: Chronic Asessment and Plan: Because of acute urinary retention Givens catheter was placed. Patient was started on Flomax. Patient will have urologic follow-up with Dr. Krish Longoria. (4) Diabetes mellitus type 2, controlled, without complications: Status: Chronic Asessment and Plan: While inpatient patient's Metformin was placed on hold he was treated with basal and bolus insulin treatment per sliding scale and carbohydrate coverage. Patient may resume his Metformin upon discharge. Patient will be assigned a local PCP who can then manage his blood sugars thereafter. Because his chronic urinary tract infections I would not recommend an SGLT2 inhibitor for treatment of his diabetes mellitus. (5) History of GI bleed: Status: Chronic Asessment and Plan: Patient was placed on Protonix for GI protection. Patient had melena and hematemesis while at [facility] during his hospitalization from July 14 through July 21, 2020. However at that time according to his discharge summary he had refused a GI work-up including an EGD. Patient's been empirically treated now with a PPI. NSAIDs should be avoided. (6) Discharge planning issues: Status: Resolved Asessment and Plan: Patient will receive follow-up home health services in cluding nursing, PT, OT, WIRE CUTTER. Physical therapy felt that he was ready for discharge provided he has follow-up outpatient PT. Patient had expressed an interest in going to a SNF. However transitional care liaison investigated his post hospital discharge from [facility] and he already exhausted his allowed correction facility days. Furthermore it is not felt that he needs inpatient correction nor does he need skilled rehabilitation on an inpatient basis. He also expressed that his housing situation is changed and that his landlord indicated that he could not have home health services in the house where he was living. commercial lines manager provide him information to contact economic services who will provide the patient with emergency housing. Discharge Plan Disposition Patient Disposition: HOME W/HOME HEALTH SERVICE Condition: Improving Discharge Details Reason For Visit: EPIDIYMOORCHITIS Admit Date/Time: 09/04/20 22:19 Admit Provider: Michael Donahue Attending Provider: Michael Donahue Primary Care Provider: JHOANA PINTO Hospital Course Hospital Course: 54-year-old male with a history of type 2 diabetes mellitus, NSTEMI (July 14, 2020), nonobstructive coronary artery disease (status post cardiac catheterization at [facility] July 14-July 21, 2020), GI bleed associated with aspirin and Plavix (undetermined origin as patient refused EGD), urinary retention due to BPH, recurrent urinary tract infections who presented the emergency department at [facility] September 04, 2020 with complaints of 1 week history of painful swollen left scrotum. No associated fevers or rigors or dysuria. No complaints of gross hematuria. Work-up revealed that he had a left epididymal orchitis along with pyuria. Urine cultures grew an ESBL E. coli organism but blood culture showed no growth. He was initially treated with Levaquin but when the culture showed that it was resistant to Levaquin and ciprofloxacin this was changed to Bactrim to which it is sensitive. Diagnostic imaging initially included a CT scan of the abdomen pelvis with contrast and this showed a very abnormal appearance to his urinary bladder with diffuse bladder wall thickening and diverticuli possibly related to chronic cystitis or bladder outlet obstruction. He had no hydronephrosis. He also had multiple lesions noted in the liver which were not simple cyst and they recommended a contrast infused MRI with hemangioma protocol to differentiate these as hemangiomas versus neoplastic lesions. He also had a small 4 mm nodule left adrenal gland felt to be an adenoma. Subsequent abdominal ultrasound was performed and showed absence of the gallbladder. He had 3 similar hyperechoic lesions in the liver that are subcapsular location relatively well-defined and correspond to the findings on CT scan felt to represent cavernous hemangiomas however again a contrast infused MRI using hemangioma protocol was recommended. No ascites was seen. Ultrasound was obtained of his scrotum and showed bilateral hydroceles left greater than the right the left was septated and loculated. He has a left epididymis is diffusely thickened and hyperemic consistent with epididymitis. There is a 5 x 4 mm cystic structure in the superior aspect the left testicle for which they cannot exclude the possibility of it developing abscess. Urology consult was obtained with Dr. Krish Longoria. He saw the patient on September 05, 2020. See his note for details. In summary Dr. Longoria reviewed the patient's chart both here at [facility] and [facility]. He indicated that the patient had a urine culture from our facility on July 14, 2020 when the patient was transferred down to [facility] for chest pain which eventually evolved into a NSTEMI. Her urine culture from July 14, 2020 grew an ESBL E. coli that was resistant to both Cipro and Levaquin. Dr. Longoria recommended that if the repeat culture also was resistant that we should change antibiotic coverage possibly ampicillin and gentamicin or even ceftriaxone. As it turned out the sensitivity of this E. coli was sensitive to trimethoprim sulfamethoxazole which the patient was discharged home on. Dr. Longoria reviewed the ultrasound findings I did not feel that the patient had abscess and needed no acute surgical treatment. He did recommend follow-up with him as an outpatient and he would arrange cystoscopy at a later date once the acute infection was cleared. During this hospitalization patient experienced difficulty voiding and had large urinary residuals of 500 mL or more and required intermittent straight catheterization which he refused but he did allow the Givens catheter be placed. Patient was started back on Flomax. Patient will be discharged home with home health services including visiting nurse and physical therapy and occupational therapy and back office medical assistant. Visiting nurse will train the patient on proper care of the catheter and Dr. Longoria will remove the catheter at the time he follows up with the patient after completion of 14-day course of Bactrim. Patient had 2 days worth of Bactrim here in the hospital and will receive another 12 days upon discharge. All of his home medications were refilled. Patient is advised to use Tylenol or he is given a limited prescription for Nucynta to take for pain. He is to avoid use of nonsteroidal anti-inflammatory drugs due to his previous recent GI bleed. Please note on the home prescription list ibuprofen was listed and transmitted to [employer] [facility] inadvertently. I called [employer] and they have stricken the ibuprofen from his electronic prescriptions. We will arrange an outpatient contrast-enhanced MRI scan with hemangioma with protocol to evaluate. Home Meds and New Rx's Prescriptions: New sulfamethoxazole-trimethoprim [Bactrim DS] 800-160 mg tablet 1 tab PO BID Qty: 24 RF: 0 sulfamethoxazole-trimethoprim 800-160 mg Tablet 1 tab PO BID Qty: 24 RF: 0 ibuprofen 600 mg tablet 600 mg PO TID PRNQty: 30 RF: 0 Nucynta 50 mg Tablet 100 mg PO Q4H PRN PRNQty: 20 RF: 0 Continued metformin 500 mg Tablet 500 mg PO BID Qty: 60 RF: 0 atorvastatin 80 mg Tablet 80 mg PO QHS Qty: 30 RF: 0 metoprolol succinate 100 mg Tablet Extended Release 24 Hr 100 mg PO DAILY Qty: 30 RF: 0 tamsulosin [Flomax] 0.4 mg Capsule 0.4 mg PO DAILY Qty: 30 RF: 0 pantoprazole 40 mg Tablet,Delayed Release (Dr/Ec) 40 mg PO DAILY Qty: 30 RF: 0 Discharge Instructions Instructions: Epididymo-Orchitis (GEN), Urinary Tract Infection in Men (DC), Givens Catheter Placement and Care (DC) Additional Instructions: Do not take ibuprofen or Motrin or any other nonsteroidal anti-inflammatory drug due to increased risk for bleeding. You experienced a GI bleed while at [facility] however work-up was not completed to find the source of your bleed. You are being prescribed Protonix to protect her stomach from a further GI bleeding. You are to complete 12 more days of trimethoprim/sulfamethoxazole for your urinary tract infection. You can take Tylenol as needed for testicular pain. You can also use a limited supply of Nucynta for pain. Keep your follow-up with Dr. Longoira. He will remove the Givens catheter in the office. Visiting nurse will train you in the proper care of your Givens catheter and the nurse will review your medications and monitor your progress with respect to your epididymo orchitis. We will have physical therapy working with you in the home as well as occupational therapy and back office medical assistant will be assigned to you to help coordinate your care with your providers. Primary care provider will be assigned to you from [facility] senior case manager. You will be scheduled for MRI to follow up on the abnormal liver lesions seen on your CT scan and ultrasound of your abdomen. Stand Alone Forms: Nursing Discharge Form Referrals: Krish Longoria MD [ [facility]] - 09/15/20 9:30 am JHOANA PINTO [Primary Care Provider] - 09/15/20 11:00 am ([facility]) Activity:: Activity as Tolerated Equipment/Supplies:: Walker Diet:: Carb Counting Discharge Orders Discharge Orders: Discharge Order (Routine); Ordered 09/08/20 Ordered By: Kumar Ha Other Ambulatory Orders: MR abdomen wo/w (Routine) Timeframe: 2 Weeks Facility: [facility] - Location: DIAGNOSTIC IMAGING DEPT Ordered By: Kumar Ha DS: Summary Time Spent with Patient providing and/or coordinating discharge services: Greater than 30 minutes Status at Discharge Functional status at discharge: uses cane/walker Overall status at discharge: patient is progressing back to baseline Mental Status: mental status grossly normal Speech and Movement: speech and movement normal Mood: congruent mood Affect: normal affect Exam Narrative Exam Narrative: Middle-age male alert and oriented person place time circumstance sitting up in bed watching TV. States his testicle is less swollen still somewhat tender to touch but otherwise is better. He is not running any fevers. Left testes is still swollen firm but the edema is gone down markedly. There is no erythema of the scrotum. Psych Mental Status: mental status grossly normal Speech and Movement: speech and movement normal Mood: congruent mood Affect: normal affect DS: Data Vitals/I&O Vitals and I&O: Vital Signs Temperature 36.3 C L 09/08/20 07:14 Temperature Source Tympanic 09/08/20 07:14 Pulse 74 09/08/20 07:14 Pulse Rhythm Regular 09/08/20 08:20 Respiratory Rate 20 09/08/20 07:14 Respiratory Effort Non-Labored 09/08/20 08:20 Respiratory Depth Normal 09/08/20 08:20 Respiratory Pattern Normal 09/08/20 08:20 Blood Pressure 140/83 09/08/20 07:14 Blood Pressure Mean 108 09/04/20 18:03 Blood Pressure Position Supine 09/04/20 17:32 Pulse Oximetry 95 09/08/20 07:14 Oxygen Delivery Method Room Air 09/08/20 07:14 Oxygen Flow Rate 0 09/08/20 07:14 Pain Level 4 09/08/20 08:14 Intake & Output 09/07/20 09/08/20 09/08/20 23:59 11:59 23:59 Intake Total 610 / 1210 600 / 1000 400 / 1000 Output Total 1450 / 2700 1650 / 1650 Balance -840 / -1490 -1050 / -650 400 / -650 Intake: IV 20 Oral 600 / 1180 580 / 980 400 / 980 Output: Urine 1450 / 2700 1650 / 1650 Other: Urine Color Yellow Yellow Urine Appearance Clear Cloudy Sediment Stool Size Moderate Stool Characteristics Soft Data Completed and Pending Labs on day of discharge: Labs from last 24 hours 09/08/20 09/07/20 06:15 06:15 Sodium 132 L Potassium 4.9 Chloride 97 L Carbon Dioxide 26.6 Anion Gap 8.4 BUN 14 Creatinine 0.9 Estimated GFR/1.73 m2 >= 60.00 Glucose 144 H D Calcium 8.9 PSA Screen 0.5 Preliminary micro results at discharge 09/04/20 22:20 Blood Culture - Preliminary Blood NO GROWTH 72 HOURS 09/04/20 22:10 Blood Culture - Preliminary Blood NO GROWTH 72 HOURS [facility] Medical History (Updated 09/08/20 @ 13:44 by Kumar Ha) Alcohol abuse Coronary artery disease Cystitis Hematemesis History of GI bleed Hyponatremia Myocardial infarction Tobacco abuse Urinary retention with incomplete bladder emptying Surgical History (Updated 09/05/20 @ 12:27 by Krish Longoria MD) Stented coronary artery Social History Smoking/Tobacco Use Status: Current every day Tobacco Type: cigarettes Smoking risk assessment performed?: Yes Alcohol Intake: current Alcohol Intake frequency: 3 or more drinks per day Alcohol type: beer and hard liquor Drug use: Occasionally Substance use type: marijuana Current gender identity: male Do you feel safe at home: Yes
--- NOTE | 2020-09-08 13:55 | PDOC.HHF2F_ITS ---
Home Health Certification Home Health Certification: 1. Encounter Date and Reason I certify that FRANCK MOHAN was seen by Kumar Ha on 09/08/20 and that I had a [id number] encounter with this patient that meets the physician face to face encounter requirements. 2. Clinical Findings Supporting Skilled Need and Homebound Status I certify that home health services are medically necessary, include either intermittent mcc and/or physical/speech therapy, and that this patient is homebound in that absences from the home require considerable and taxing effort and are infrequent or of short duration, or are attributable to the need to receive medical care. [X] (a) Attached documentation from encounter provides clinical findings supporting skilled need and homebound status (including what assistance patient requires to leave the home). The encounter with the patient was in whole, or in part, for the following medical condition, which is the primary reason for home health care: EPIDIYMOORCHITIS Residential: Visiting nurse to assist patient with management of his indwelling Givens catheter and change at the direction of his urologist. Visiting nurse to monitor his medication usage as well as monitor the progress of his epididymo orchitis. Visiting nurse to coordinate with the patient's medical providers regarding any change of medications or any follow-up lab work or urine cultures that are required. compensator worker to be assigned to the patient to coordinate patient's follow-up visits with his providers as well as coordinate benefits for medical care and housing. Physical Therapy: Physical therapy and Occupational Therapy to evaluate the patient regarding his generalized deconditioning and amatory dysfunction secondary to his prolonged hospitalization. Continue with strengthening program and gait training and evaluate patient's abilities to independently perform his ADLs. When patient has reached complete independence in self-care and stability and strength and gait that he may be discharged from home PT and OT. Speech Therapy: Homebound: Patient's acute infection limits patient's ability to safely navigate outside his home and necessitates home health services. 3. Certification and Authentication I certify that I composed the above information based on my clinical judgement relating to this patient's medical condition and, if applicable, clinical findings communicated to me by the NPP or inpatient physician who performed the Home Health Referral. All further orders will be obtained through __[facility] (Dhaval Mart) (Community Based Physician - PCP)
[2020-09-08 15:30] VITALS: BP 186/74; PULSE 80; RESP 18; TEMP 36.3; O2SAT 98
--- NOTE | 2020-09-08 18:25 | CMDISCH_ITS ---
- If Service Date Differs Date of service: 09/08/20 Time of Service: 18:25 LACE Index Scoring Tool - Questions: Length of Stay (in days): 4 - 6 Acuity (Admit via E.D.?): Yes Comorbidities: Diabetes w/o Complication E.D. Visits: 2 - Answers: Total Score: 10 Risk of Readmission: High Risk Care Management Discharge Reason for Hospitalization: Epidymoorchititis Discharge Plan: Roddy was placed by [facility] at the [facility] in [place] today, after no local rooms could be secured. MARY helped with this coordination. CM coordinated an RCT ride to the [facility], stopping at [facility] in [facility] to machine pecan picker all of his prescriptions. CM faxed [employer] [facility] his correct insurance cards, as the one on file is not his Plan D. CM contacted [facility] to connect Roddy with MOW and housing support. CM connected Roddy to [employer], who processed a [employer] application for him to be eligible for additional support in the community. MARY also sent a referral to [facility] to help support him while he is at the hotel in [facility]. Once a room is available locally, he will be moved to the [facility] in order for him to be close to his medical home. CM reviewed discharge plan with Cally De Santiago to ensure transition of care into the community. Roddy is agreeable with the plan. Patient/Family Education Needs: Review discharge instructions with Roddy, transition of care to community supports, discussion of self care needs. Services Needed at Discharge: Home Delivered Meals (MOW- VCIL), Home Health Care Services (VN), Transportation (RCT)
--- NOTE | 2020-09-09 17:50 | INDS_ITS ---
Date of service: 09/12/20 PT Notes Visit Reasons: PSYCHIATRIC Inpatient Physical Therapy Discharge Summary Date: 09/09/20 Dates of Service: 09/06/2020 through 09/08/2020 This is a clinical summary of care provided on the duration of dates listed above. No charge was made in the completion of this documentation. Referring Doctor: Kumar Ha PT Orders: PT CONSULT: Evaluate and Treat Precautions: Standard Patient Profile/Admitting Diagnosis: Orders received for this 54-year-old male with a history of disability. Patient has had a slightly complicated past 3 months getting in and out of hospitalization. Patient states that he woke up about a week ago with inflammation of the scrotal area. He also has a self- described history of stroke and believes that he has had a little bit more difficulty with the left side. He has been brought in for treatment of the inflammation PMHX: PAST MEDICAL HISTORY/PAST SURGICAL HISTORY:: Medical History, per chart: alcohol abuse, coronary artery disease, cystitis, hematemesis, hyponatremia, myocardial infarction, tobacco abuse, urinary retention with incomplete bladder emptying. Surgical History: Stented coronary artery Social History/Home Situation: Patient lives alone in [place] in a single level residence Equipment Owned/DME: Front wheel walker and Rollator walker Subjective: NT. See most recent WATER SOFTENER INSTALLER notes. Objective: NT. See most recent WATER SOFTENER INSTALLER notes. Mental Status: NT. See most recent WATER SOFTENER INSTALLER notes. Pain: NT. See most recent WATER SOFTENER INSTALLER notes. ROM: Right Upper Extremity: within functional limits Left Upper Extremity: Within functional limits Right Lower Extremity: within functional limits Left Lower Extremity: Within functional limits Strength: Right Upper Extremity: Grossly 5-5 Left Upper Extremity: Grossly 4+ out of 5 Right Lower Extremity: Grossly 5 out of 5 Left Lower Extremity: Grossly 4+ out of 5 Bed Mobility/Transfers: Supervision with only need for negotiation of bed linen Supine-sit: Independent Sit-stand: Independent Stand-sit: Independent Gait: Patient ambulates under supervision with the need for only slight contact- guard assist for backward walking. Total ambulation distance about 150 feet with use of 4-wheel walker Balance: Static Sitting: Good Dynamic Sitting: Fair Static Standing: Fair Dynamic Standing: Fair Special Tests: Mobility Limitations [facility] Basic Mobility Inpatient Short Form: Raw Score: 18 Standardized Score: 43.68 CMS Score: 46.58% Informed Consent/Education: Patient instructed in purpose of PT consult and plan of care. ASSESSMENT: Roddy demonstrates improved mobility performance during this epsiode of care as seen in the goal status below. he will benefit from PT in order to achieve independent community ambulation without an AD. Goals: Goals X1 week 1. Supine-Sit Ind MET 2. Sit-Supine Ind MET 3. Sit-Stand ind MET 4. Stand-Sit Ind MET 5. Bed-Chair Ind MET 6. Gait Ind with FWW up to 50 feet NOT MET DISCHARGE RECOMMENDATIONS: To home with the help of home health services such as PT/OT and nursing once medically cleared for discharge. TREATMENT CODE/TIME: MO Thank you for the opportunity to participate in the care of this patient. Ashley Wagner PT, DPT, CLT [facility] [place], [place]
== END 2020-09-08 17:45 | disposition home health service (06) | DRG 728 ==
LOC: ER 22:39 → MS 23:18
PROVIDERS: Family Medicine; Internal Medicine; Admitting Provider General Practice; Emergency Provider Physician Assistant; PCP Nurse Practitioner Family; Visit Provider General Practice
DX: N45.3 Epididymo-orchitis (principal); N39.0 Urinary tract infection, site not specified; Z16.12 Extended spectrum beta lactamase (ESBL) resistance; E87.1 Hypo-osmolality and hyponatremia; B96.29 Other Escherichia coli [E. coli] as the cause of diseases classified elsewhere; R33.9 Retention of urine, unspecified; N40.1 Benign prostatic hyperplasia with lower urinary tract symptoms; E11.9 Type 2 diabetes mellitus without complications; Z79.84 Long term (current) use of oral hypoglycemic drugs; R93.2 Abnormal findings on diagnostic imaging of liver and biliary tract; I25.2 Old myocardial infarction; I25.10 Atherosclerotic heart disease of native coronary artery without angina pectoris; E87.6 Hypokalemia
CPT/HCPCS: 36415; 36416; 80048; 80053; 82962; 83690; 84153; 85027; 87040; 87077; 87491; 87591; 93005; 96361; 96365; 96375; 97110; 97162; 97530; 97535; 99221; 99222; 99232; 99233; 99239; 99253; 99285; U0003; U0005; 74177; 76700; 76870; 80320; 81003; 81015; 83036; 83605; 85025; 86140; 87086; 87186; 93010; 99284; J0131; J1885; J1956; J2060; J2270; J3490